=== PATIENT | female | born 1990 | race African-American/Black ===

== ENCOUNTER 2019-11-25 13:07 | Inpatient (IN) | payer MEDICAID ==
[~2019-11-25] VITALS: Ht 152.4 cm; Wt 87.1 kg
[~2019-11-25 13:07] MED LIST: CEPH-264 PO; CYCL10TA2 PO; IBUP-1007 PO
[2019-11-25] MEDS ORDERED: fentaNYL PF VIAL 100 MCG/2 ML VIAL ONE (13:44)
[2019-11-25] MEDS ORDERED: PANTOPRAZOLE IV PUSH 40 MG VIAL. IVP ONE ×2 (13:45→13:48)
[2019-11-25] MEDS ORDERED: fentaNYL PF VIAL 100 MCG/2 ML VIAL IV ONE (13:45)
[2019-11-25 13:58] LABS: BASO % 1 % (0-3); EOS # 0.1 x10^3/uL (0.0-0.7); EOS % 2 % (0-3); HEMOGLOBIN 12.3 g/dL (12.0-15.5); LYMPH # 1.8 x10^3/uL (1.0-4.8); LYMPH % 27 % (24-48); MEAN CORPUSCULAR HEMOGLOBIN 27 pg (25-35); MEAN CORPUSCULAR HGB CONC 32 g/dL (31-37); MEAN CORPUSCULAR VOLUME 83 fL (79-100); MONO # 0.6 x10^3/uL (0.0-1.1); MONO % 9 % (0-9); NEUT # 4.1 x10^3/uL (1.8-7.7); NEUT % 62 % (31-73); PLATELET COUNT 294 x10^3/uL (140-400); RED BLOOD COUNT 4.56 x10^6/uL (3.50-5.40); RED CELL DISTRIBUTION WIDTH 12.9 % (11.5-14.5); WHITE BLOOD COUNT 6.6 x10^3/uL (4.0-11.0)
[2019-11-25 14:08] LABS: CALCIUM 9.3 mg/dL (8.5-10.1); CREATININE 0.6 mg/dL (0.6-1.0); GFR 141.1
[2019-11-25 14:14] LABS: ALBUMIN 3.4 g/dL (3.4-5.0); ALBUMIN/GLOBULIN RATIO 0.8 (1.0-1.7); TOTAL BILIRUBIN 0.4 mg/dL (0.2-1.0); TOTAL PROTEIN 7.6 g/dL (6.4-8.2)
[2019-11-25] MEDS ORDERED: IOHEXOL 300 MG/ML 100ML VIAL. IV ONE (14:15)
[2019-11-25] MEDS ORDERED: CONTRAST GIVEN. MC PRN (14:30)
--- NOTE | 2019-11-25 14:48 | RAD ---
EXAM: Abdomen and pelvis CT with intravenous contrast. HISTORY: Rectal bleeding. TECHNIQUE: Computed tomographic images of the abdomen and pelvis were obtained following the administration of intravenous contrast. Multiplanar reformatting was performed. *One or more of the following individualized dose reduction techniques were utilized for this examination: 1. Automated exposure control. 2. Adjustment of the mA and/or kV according to patient size. 3. Use of iterative reconstruction technique. COMPARISON: None. FINDINGS: Evaluation of the lower thorax demonstrates no infiltrate or pleural effusion. There is suggestion of distal esophageal mucosal thickening, not clearly within limits to suggest esophagitis. No suspicious hepatic lesion is seen. There is cholelithiasis. There is common bile duct dilatation. The pancreas, spleen, adrenal glands and kidneys are unremarkable. There is no appendicitis. No abnormally thickened or dilated loop of bowel is seen. The urinary bladder is unremarkable. The uterus is unremarkable. There are small ovarian follicles and there is a small amount of pelvic free fluid, within physiologic limits. The aorta is normal in caliber. There is no lymphadenopathy. There is no suspicious osseous lesion. IMPRESSION: 1. Cholelithiasis. 2. No convincing acute abdominal or pelvic finding. Electronically signed by: Juani Alicea MD (11/25/2019 2:45 PM) [id number]
--- NOTE | 2019-11-25 15:22 | PHYS DOC ---
Past Medical History Past Medical History: Anxiety, Depression, Other Additional Past Medical Histor: CEREBRAL PALSY Past Surgical History: Other Additional Past Surgical Histo: GROIN, ANKLES, LIMB STRAIGHTENING Alcohol Use: None Drug Use: None Adult General Chief Complaint Chief Complaint: ABDOMINAL PAIN HPI HPI Patient is a 29 year old female who presents with here from a usp after she had a diarrhea bowel movement today and they helped wipe her and saw blood on the toilet paper. Patient complains of right-sided stomach lower abdominal pain. This all started today. Patient has cerebral palsy. She is alert and oriented 3. She only had diarrhea 1. She denies any nausea or vomiting. Rates the pain a 10 out of 10. No tenderness abdomen with palpation. Review of Systems Review of Systems GI: abdominal pain, denies nausea, vomiting. + bloody stools or +diarrhea x 1 [] All other systems were reviewed and found to be within normal limits, except as documented in this note. Current Medications Current Medications Current Medications Medications (Trade) Dose Ordered Sig/Clive Start Time Stop Time Status Last Admin Dose Admin Fentanyl Citrate (Fentanyl 2ml Vial) 50 mcg PRN Q1HR PRN 11/25/19 19:30 11/26/19 19:29 Info (CONTRAST GIVEN -- Rx MONITORING) 1 each PRN DAILY PRN 11/25/19 14:30 11/27/19 14:29 Iohexol (Omnipaque 300 Mg/ml) 75 ml 1X ONCE 11/25/19 14:15 11/25/19 14:16 DC 11/25/19 14:37 75 ML Ondansetron HCl (Zofran) 4 mg PRN Q8HRS PRN 11/25/19 19:30 11/26/19 19:29 Pantoprazole Sodium (PROTONIX VIAL for IV PUSH) 40 mg STK-MED ONCE 11/25/19 13:48 11/25/19 13:49 DC Sodium Chloride 1,000 ml @ 100 mls/hr Q10H 11/25/19 19:16 11/26/19 19:15 Allergies Allergies Allergies Coded Allergies Type Severity Reaction Last Updated Verified No Known Drug Allergies 11/25/19 No Physical Exam Physical Exam Constitutional: Well developed, well nourished, no acute distress, non-toxic appearance. [] HENT: Normocephalic, atraumatic, bilateral external ears normal, oropharynx moist, no oral exudates, nose normal. [] Eyes: PERRLA, EOMI, conjunctiva normal, no discharge. [] Neck: Normal range of motion, no tenderness, supple, no stridor. [] Cardiovascular:Heart rate regular rhythm, no murmur [] Lungs & Thorax: Bilateral breath sounds clear to auscultation [] Abdomen: Bowel sounds normal, soft, no tenderness, no masses, no pulsatile masses. [] Skin: Warm, dry, no erythema, no rash. [] Back: No tenderness, no CVA tenderness. [] Extremities: No tenderness, no cyanosis, no clubbing, ROM intact, no edema. [] Neurologic: Alert and oriented X 3, normal motor function, normal sensory function, no focal deficits noted. [] Psychologic: Affect normal, judgement normal, mood normal. Normal Physical Exam[] Current Patient Data Vital Signs Vital Signs Date Time Temp Pulse Resp B/P (MAP) Pulse Ox O2 Delivery O2 Flow Rate FiO2 11/25/19 18:50 80 16 146/68 (94) 98 Room Air 11/25/19 13:09 98.7 98.7 Lab Values Laboratory Tests Test 11/25/19 13:35 11/25/19 15:15 11/25/19 16:33 White Blood Count 6.6 x10^3/uL (4.0-11.0) Red Blood Count 4.56 x10^6/uL (3.50-5.40) Hemoglobin 12.3 g/dL (12.0-15.5) Hematocrit 38.0 % (36.0-47.0) Mean Corpuscular Volume 83 fL (79-100) Mean Corpuscular Hemoglobin 27 pg (25-35) Mean Corpuscular Hemoglobin Concent 32 g/dL (31-37) Red Cell Distribution Width 12.9 % (11.5-14.5) Platelet Count 294 x10^3/uL (140-400) Neutrophils (%) (Auto) 62 % (31-73) Lymphocytes (%) (Auto) 27 % (24-48) Monocytes (%) (Auto) 9 % (0-9) Eosinophils (%) (Auto) 2 % (0-3) Basophils (%) (Auto) 1 % (0-3) Neutrophils # (Auto) 4.1 x10^3/uL (1.8-7.7) Lymphocytes # (Auto) 1.8 x10^3/uL (1.0-4.8) Monocytes # (Auto) 0.6 x10^3/uL (0.0-1.1) Eosinophils # (Auto) 0.1 x10^3/uL (0.0-0.7) Basophils # (Auto) 0.0 x10^3/uL (0.0-0.2) Sodium Level 138 mmol/L (136-145) Potassium Level 4.0 mmol/L (3.5-5.1) Chloride Level 105 mmol/L (98-107) Carbon Dioxide Level 22 mmol/L (21-32) Anion Gap 11 (6-14) Blood Urea Nitrogen 10 mg/dL (7-20) Creatinine 0.6 mg/dL (0.6-1.0) Estimated GFR (Cockcroft-Gault) 141.1 BUN/Creatinine Ratio 17 (6-20) Glucose Level 87 mg/dL (70-99) Calcium Level 9.3 mg/dL (8.5-10.1) Total Bilirubin 0.4 mg/dL (0.2-1.0) Aspartate Amino Transferase (AST) 16 U/L (15-37) Alanine Aminotransferase (ALT) 7 U/L (14-59) L Alkaline Phosphatase 69 U/L (46-116) Total Protein 7.6 g/dL (6.4-8.2) Albumin 3.4 g/dL (3.4-5.0) Albumin/Globulin Ratio 0.8 (1.0-1.7) L Lipase 197 U/L (73-393) Stool Occult Blood Negative (NEG) Urine Collection Type Unknown Urine Color Yellow Urine Clarity Clear Urine pH 7.0 Urine Specific [place] >=1.030 Urine Protein Negative mg/dL (NEG-TRACE) Urine Glucose (UA) Negative mg/dL (NEG) Urine Ketones (Stick) Negative mg/dL (NEG) Urine Blood Negative (NEG) Urine Nitrite Negative (NEG) Urine Bilirubin Negative (NEG) Urine Urobilinogen Dipstick 0.2 mg/dL (0.2 mg/dL) Urine Leukocyte Esterase Negative (NEG) Urine RBC Occ /HPF (0-2) Urine WBC Occ /HPF (0-4) Urine Squamous Epithelial Cells Many /LPF Urine Bacteria Moderate /HPF (0-FEW) Urine Opiates Screen Neg (NEG) Urine Methadone Screen Neg (NEG) Urine Barbiturates Neg (NEG) Urine Phencyclidine Screen Neg (NEG) Urine Amphetamine/Methamphetamine Neg (NEG) Urine Benzodiazepines Screen Neg (NEG) Urine Cocaine Screen Neg (NEG) Urine Cannabinoids Screen Neg (NEG) Urine Ethyl Alcohol Neg (NEG) Laboratory Tests 11/25/19 13:35 Laboratory Tests 11/25/19 13:35 EKG EKG [] Radiology/Procedures Radiology/Procedures [] Impressions: [facility] [address] [place] [address] IMAGING REPORT Signed PATIENT: SOULEYMANE LINK ACCOUNT: [id number] : 1990 LOCATION: ER AGE: 29 SEX: F EXAM STATUS: PRE ER ORD. PHYSICIAN: PAUL PINON APRN REASON: abd pain, rectal bleeding PROCEDURE: CT ABD PELV W/ IV CONTRST ONLY EXAM: Abdomen and pelvis CT with intravenous contrast. HISTORY: Rectal bleeding. TECHNIQUE: Computed tomographic images of the abdomen and pelvis were obtained following the administration of intravenous contrast. Multiplanar reformatting was performed. *One or more of the following individualized dose reduction techniques were utilized for this examination: 1. Automated exposure control. 2. Adjustment of the mA and/or kV according to patient size. 3. Use of iterative reconstruction technique. COMPARISON: None. FINDINGS: Evaluation of the lower thorax demonstrates no infiltrate or pleural effusion. There is suggestion of distal esophageal mucosal thickening, not clearly within limits to suggest esophagitis. No suspicious hepatic lesion is seen. There is cholelithiasis. There is common bile duct dilatation. The pancreas, spleen, adrenal glands and kidneys are unremarkable. There is no appendicitis. No abnormally thickened or dilated loop of bowel is seen. The urinary bladder is unremarkable. The uterus is unremarkable. There are small ovarian follicles and there is a small amount of pelvic free fluid, within physiologic limits. The aorta is normal in caliber. There is no lymphadenopathy. There is no suspicious osseous lesion. IMPRESSION: 1. Cholelithiasis. 2. No convincing acute abdominal or pelvic finding. Electronically signed by: Juani Glasgow MD (11/25/2019 2:45 PM) [id number] DICTATED and SIGNED BY: JUANI GLASGOW MD DATE: 11/25/19 1445 [facility] [address] [place] [address] IMAGING REPORT Signed PATIENT: SOULEYMANE LINK ACCOUNT: [id number] : 1990 LOCATION: ER AGE: 29 SEX: F EXAM STATUS: REG ER ORD. PHYSICIAN: PAUL PINON APRN REASON: RUQ PAIN, GALLSTONES ON CT PROCEDURE: ABDOMEN LTD ABDOMEN LTD INDICATION: Right upper quadrant pain, cholelithiasis on CT COMPARISON: CT 11/25/2019. TECHNIQUE: Limited transverse and longitudinal grayscale images of the right upper quadrant with color and pulsed doppler utilized as appropriate. FINDINGS: The liver demonstrates normal echogenicity without focal lesions. The liver measures 14.2 cm. The portal vein is patent with normal antegrade flow. Cholelithiasis and gallbladder sludge. No wall thickening or pericholecystic fluid. Negative sonographic Yañez's sign. No intrahepatic or extrahepatic biliary dilatation. The common bile duct measures 14 mm Main pancreatic duct at upper limits of normal measuring 3 mm. The right kidney has normal echogenicity and measures 9.5 cm. No hydronephrosis, shadowing stones or suspicious masses seen. No ascites or fluid collections. The aorta and IVC are normal diameter where visualized. IMPRESSION: 1. Cholelithiasis and gallbladder sludge. No evidence of acute cholecystitis. 2. Dilated common bile duct measures 14 mm. Electronically signed by: Edith Schwarz MD (11/25/2019 7:19 PM) [facility] DICTATED and SIGNED BY: EDITH SCHWARZ MD DATE: 11/25/191918 Course & Med Decision Making Course & Med Decision Making Alert and oriented. Takes in full clear sentences. Answers all questions appropriately. Abdomen is soft and nontender. Lungs are clear to auscultation in all lobes. Vital signs within normal limits. No extremity edema. Skin pink warm and dry. Mucous membranes are moist. Afebrile. CT shows Cholithiasis. Blood work unremarkable. US shows: IMPRESSION: 1. Cholelithiasis and gallbladder sludge. No evidence of acute cholecystitis. 2. Dilated common bile duct measures 14 mm. Rectal Exam: Normal tone, No mass, Positive control Stool: Brown Guaiac: Negative Patient continues to rate her pain a 10/10. Her pain has not been controlled for long after Fentanyl has been given. I have spoken to Dr Carmona and patient is admitted. Dragon Disclaimer Dragon Disclaimer This electronic medical record was generated, in whole or in part, using a voice recognition dictation system. Departure Departure Impression: Primary Impression: Cholelithiases Disposition: ADMITTED INPATIENT Condition: STABLE Referrals: SAIRA REY MD (PCP) Problem Qualifiers Primary Impression: Cholelithiases Cholelithiasis location: gallbladder Cholecystitis presence: without cholecystitis Biliary obstruction: without biliary obstruction Qualified Codes: K80.20 - Calculus of gallbladder without cholecystitis without obstruction PAUL PINON APRN Nov 25, 2019 15:21
[2019-11-25] MEDS ORDERED: fentaNYL PF VIAL 100 MCG/2 ML VIAL IVP ONE ×2 (15:30→19:15)
[2019-11-25 15:31] LABS: FECAL OB PT NEGATIVE (NEG)
[2019-11-25] MEDS ORDERED: ONDANSETRON PF 4 MG/2 ML VIAL. ONE (15:49)
[2019-11-25 16:42] LABS: BILIRUBIN,URINE NEGATIVE (NEG); CLARITY,URINE CLEAR; COLOR,URINE YELLOW; NITRITE,URINE NEGATIVE (NEG); PROTEIN,URINE NEGATIVE (NEG-TRACE); UROBILINOGEN,URINE 0.2 mg/dL (0.2 mg/dL)
[2019-11-25 16:50] LABS: AMPHETAMINE/METHAMPHETAMINE NEG (NEG); BARBITURATES NEG (NEG); BENZODIAZEPINES NEG (NEG); CANNABINOIDS NEG (NEG); COCAINE NEG (NEG); METHADONE NEG (NEG); OPIATES NEG (NEG); PHENCYCLIDINE NEG (NEG)
[2019-11-25 16:51] LABS: BACTERIA,URINE MODERATE /HPF (0-FEW); RBC,URINE OCC /HPF (0-2); SQUAMOUS EPITHELIAL CELL,UR MANY /LPF; WBC,URINE OCC /HPF (0-4)
--- NOTE | 2019-11-25 19:22 | RAD ---
ABDOMEN LTD INDICATION: Right upper quadrant pain, cholelithiasis on CT COMPARISON: CT 11/25/2019. TECHNIQUE: Limited transverse and longitudinal grayscale images of the right upper quadrant with color and pulsed doppler utilized as appropriate. FINDINGS: The liver demonstrates normal echogenicity without focal lesions. The liver measures 14.2 cm. The portal vein is patent with normal antegrade flow. Cholelithiasis and gallbladder sludge. No wall thickening or pericholecystic fluid. Negative sonographic Yañez's sign. No intrahepatic or extrahepatic biliary dilatation. The common bile duct measures 14 mm Main pancreatic duct at upper limits of normal measuring 3 mm. The right kidney has normal echogenicity and measures 9.5 cm. No hydronephrosis, shadowing stones or suspicious masses seen. No ascites or fluid collections. The aorta and IVC are normal diameter where visualized. IMPRESSION: 1. Cholelithiasis and gallbladder sludge. No evidence of acute cholecystitis. 2. Dilated common bile duct measures 14 mm. Electronically signed by: Enrique Tomlinson MD (11/25/2019 7:19 PM) [facility]
[2019-11-25] MEDS ORDERED: fentaNYL PF VIAL 100 MCG/2 ML VIAL IV PRN (19:30)
[2019-11-25] MEDS ORDERED: ONDANSETRON PF 4 MG/2 ML VIAL. IV PRN (19:30)
[2019-11-25 20:45] VITALS: BP 124/71
[2019-11-25 23:00] VITALS: BP 114/68
[2019-11-26] MEDS: IV NORMAL SALINE 1000ML BAG 1,000 ML IV SCH ×3 (00:50→15:16)
[2019-11-26] MEDS ORDERED: PARO12.517 PO (01:44)
[2019-11-26] MEDS ORDERED: CARB15DR3 EACHEYE (01:44)
--- NOTE | 2019-11-26 02:49 | NUR ---
The patient, SOULEYMANE LINK, 29 y/o, F admitted by CARRIE ASENCIO MD, was given written information regarding hospital policies, unit procedures and contact persons. Valuables were checked and left with patient .
[2019-11-26 03:00] VITALS: BP 100/49
[2019-11-26 07:59] VITALS: BP 116/62
--- NOTE | 2019-11-26 11:05 | PDOC1 ---
History and Physical Date of Admission Date of Admission DATE: 11/26/19 TIME: 11:03 Identification/Chief Complaint Chief Complaint SEEN IN ER , presented from a halfway after she had a diarrhea bowel movement 11/25 and they helped wipe her and saw blood on the toilet paper. Patient complains of right-sided stomach lower abdominal pain. This all started 11/25 Patient has cerebral palsy. She is alert and oriented 3. She only had diarrhea 1. She denies any nausea or vomiting. Rated the pain a 10 out of 10 in ER, NAD NOW Past Medical History Past Medical History Past Medical History Past Medical History Past Medical History: Anxiety, Depression, Other Additional Past Medical Histor: CEREBRAL PALSY Past Surgical History: Other Additional Past Surgical Histo: GROIN, ANKLES, LIMB STRAIGHTENING Alcohol Use: None Drug Use: None FHX OBESITY Family History Family History: High Cholestrol Social History Smoke: No ALCOHOL: none Drugs: None Current Problem List Problem List Problems Medical Problems: (1) Abdominal pain Status: Acute (2) Cholelithiases Status: Acute Current Medications Current Medications Current Medications Fentanyl Citrate (Fentanyl 2ml Vial) 100 mcg STK-MED ONCE .ROUTE ; Start 11/25/19 at 13:44; Stop 11/25/19 at 13:44; Status DC Fentanyl Citrate (Fentanyl 2ml Vial) 50 mcg 1X ONCE IV Last administered on 11/25/19at 13:47; Start 11/25/19 at 13:45; Stop 11/25/19 at 13:48; Status DC Pantoprazole Sodium (PROTONIX VIAL for IV PUSH) 40 mg 1X ONCE IVP Last administered on 11/25/19at 13:50; Start 11/25/19 at 13:45; Stop 11/25/19 at 13:48; Status DC Pantoprazole Sodium (PROTONIX VIAL for IV PUSH) 40 mg STK-MED ONCE IVP ; Start 11/25/19 at 13:48; Stop 11/25/19 at 13:49; Status DC Iohexol (Omnipaque 300 Mg/ml) 75 ml 1X ONCE IV Last administered on 11/25/19at 14:37; Start 11/25/19 at 14:15; Stop 11/25/19 at 14:16; Status DC Info (CONTRAST GIVEN -- Rx MONITORING) 1 each PRN DAILY PRN MC SEE COMMENTS; Start 11/25/19 at 14:30; Stop 11/27/19 at 14:29 Fentanyl Citrate (Fentanyl 2ml Vial) 50 mcg 1X ONCE IVP Last administered on 11/25/19at 15:31; Start 11/25/19 at 15:30; Stop 11/25/19 at 15:31; Status DC Ondansetron HCl (Zofran) 4 mg STK-MED ONCE .ROUTE ; Start 11/25/19 at 15:49; Stop 11/25/19 at 15:49; Status DC Fentanyl Citrate (Fentanyl 2ml Vial) 50 mcg 1X ONCE IVP Last administered on 11/25/19at 19:59; Start 11/25/19 at 19:15; Stop 11/25/19 at 19:16; Status DC Ondansetron HCl (Zofran) 4 mg PRN Q8HRS PRN IV NAUSEA/VOMITING; Start 11/25/19 at 19:30; Stop 11/26/19 at 19:29 Fentanyl Citrate (Fentanyl 2ml Vial) 50 mcg PRN Q1HR PRN IV PAIN Last administered on 11/26/19at 03:37; Start 11/25/19 at 19:30; Stop 11/26/19 at 19:29 Sodium Chloride 1,000 ml @ 100 mls/hr Q10H IV Last administered on 11/26/19at 10:01; Start 11/25/19 at 19:16; Stop 11/26/19 at 19:15 Active Scripts Active Ibuprofen 600 Mg Tablet 600 Mg PO Q6-8HRS PRN Reported Refresh Optive Eye Drops (Carboxymethylcellulos/Glycerin) 15 Ml Drops 1 Drop EACHEYE TID Paroxetine Cr (Paroxetine HCl) 12.5 Mg Tab.er.24h 5 Mg PO DAILY Allergies Allergies: Coded Allergies: No Known Drug Allergies (Unverified , 11/25/19) ROS Review of System Review of Systems Review of Systems GI: abdominal pain, denies nausea, vomiting. + bloody stools or +diarrhea x 1 [] 14 PT systems were reviewed and found to be within normal limits, except as documented General: No: Chills, Night Sweats, Fatigue, Malaise, Appetite, Other PSYCHOLOGICAL ROS: YES: Anxiety Eyes: No Blurry vision, No Decreased vision, No Double vision, No Dry eyes, No Excessive tearing, No Eye Pain, No Itchy Eyes, No Loss of vision, No Photophobia, No Scotomata, No Uses contacts, No Uses glasses, No Other HEENT: No: Heacaches, Visual Changes, Hearing change, Nasal congestion, Nasal discharge, Oral lesions, Sinus pain, Sore Throat, Epistaxis, Sneezing, Snoring, Tinnitus, Vertigo, Vocal changes, Other ALLERGY AND IMMUNOLOGY: No: Hives, Insect Bite Sensitivity, Itchy/Watery Eyes, Nasal Congestion, Post Nasal Drip, Seasonal Allergies, Other Hematological and Lymphatic: No: Bleeding Problems, Blood Clots, Blood Transfusions, Brusing, Night Sweats, Pallor, Swollen Lymph Nodes, Other Cardiovascular: No Chest Pain, No Palpitations, No Orthopnea, No Paroxysmal Noc. Dyspnea, No Edema, No Lt Headedness, No Other Physical Exam Physical Exam Physical Exam Physical Exam Constitutional: Well developed, well nourished, no acute distress, non-toxic appearance. [] HENT: Normocephalic, atraumatic, bilateral external ears normal, oropharynx moist, no oral exudates, nose normal. [] Eyes: PERRLA, EOMI, conjunctiva normal, no discharge. [] Neck: Normal range of motion, no tenderness, supple, no stridor. [] Cardiovascular:Heart rate regular rhythm, no murmur [] Lungs & Thorax: Bilateral breath sounds clear to auscultation [] Abdomen: Bowel sounds normal, soft, no tenderness, no masses, no pulsatile masses. [] Skin: Warm, dry, no erythema, no rash. [] Back: No tenderness, no CVA tenderness. [] Extremities: No tenderness, no cyanosis, no clubbing, ROM intact, no edema. [] Neurologic: Alert and oriented X 3, normal motor function, normal sensory function, no focal deficits noted. [] Psychologic: Affect normal, judgment normal, mood normal. General: Oriented X3, Cooperative Heart: RRR Breasts: Not examined Abdomen: Normal bowel sounds, Soft Rectal Exam: not examined PELVIC: Examination not indicated Extremities: No clubbing, No cyanosis Psych/Mental Status: Mood NL Vitals Vitals Vital Signs Date Time Temp Pulse Resp B/P (MAP) Pulse Ox O2 Delivery O2 Flow Rate FiO2 11/26/19 07:59 98.4 93 20 116/62 (80) Room Air 98.4 11/26/19 04:10 99 Labs Labs Laboratory Tests Test 11/25/19 13:35 11/25/19 15:15 11/25/19 16:33 White Blood Count 6.6 x10^3/uL (4.0-11.0) Red Blood Count 4.56 x10^6/uL (3.50-5.40) Hemoglobin 12.3 g/dL (12.0-15.5) Hematocrit 38.0 % (36.0-47.0) Mean Corpuscular Volume 83 fL (79-100) Mean Corpuscular Hemoglobin 27 pg (25-35) Mean Corpuscular Hemoglobin Concent 32 g/dL (31-37) Red Cell Distribution Width 12.9 % (11.5-14.5) Platelet Count 294 x10^3/uL (140-400) Neutrophils (%) (Auto) 62 % (31-73) Lymphocytes (%) (Auto) 27 % (24-48) Monocytes (%) (Auto) 9 % (0-9) Eosinophils (%) (Auto) 2 % (0-3) Basophils (%) (Auto) 1 % (0-3) Neutrophils # (Auto) 4.1 x10^3/uL (1.8-7.7) Lymphocytes # (Auto) 1.8 x10^3/uL (1.0-4.8) Monocytes # (Auto) 0.6 x10^3/uL (0.0-1.1) Eosinophils # (Auto) 0.1 x10^3/uL (0.0-0.7) Basophils # (Auto) 0.0 x10^3/uL (0.0-0.2) Sodium Level 138 mmol/L (136-145) Potassium Level 4.0 mmol/L (3.5-5.1) Chloride Level 105 mmol/L (98-107) Carbon Dioxide Level 22 mmol/L (21-32) Anion Gap 11 (6-14) Blood Urea Nitrogen 10 mg/dL (7-20) Creatinine 0.6 mg/dL (0.6-1.0) Estimated GFR (Cockcroft-Gault) 141.1 BUN/Creatinine Ratio 17 (6-20) Glucose Level 87 mg/dL (70-99) Calcium Level 9.3 mg/dL (8.5-10.1) Total Bilirubin 0.4 mg/dL (0.2-1.0) Aspartate Amino Transf (AST/SGOT) 16 U/L (15-37) Alanine Aminotransferase (ALT/SGPT) 7 U/L (14-59) Alkaline Phosphatase 69 U/L (46-116) Total Protein 7.6 g/dL (6.4-8.2) Albumin 3.4 g/dL (3.4-5.0) Albumin/Globulin Ratio 0.8 (1.0-1.7) Lipase 197 U/L (73-393) Stool Occult Blood Negative (NEG) Urine Collection Type Unknown Urine Color Yellow Urine Clarity Clear Urine pH 7.0 Urine Specific [place] >=1.030 Urine Protein Negative mg/dL (NEG-TRACE) Urine Glucose (UA) Negative mg/dL (NEG) Urine Ketones (Stick) Negative mg/dL (NEG) Urine Blood Negative (NEG) Urine Nitrite Negative (NEG) Urine Bilirubin Negative (NEG) Urine Urobilinogen Dipstick 0.2 mg/dL (0.2 mg/dL) Urine Leukocyte Esterase Negative (NEG) Urine RBC Occ /HPF (0-2) Urine WBC Occ /HPF (0-4) Urine Squamous Epithelial Cells Many /LPF Urine Bacteria Moderate /HPF (0-FEW) Urine Opiates Screen Neg (NEG) Urine Methadone Screen Neg (NEG) Urine Barbiturates Neg (NEG) Urine Phencyclidine Screen Neg (NEG) Urine Amphetamine/Methamphetamine Neg (NEG) Urine Benzodiazepines Screen Neg (NEG) Urine Cocaine Screen Neg (NEG) Urine Cannabinoids Screen Neg (NEG) Urine Ethyl Alcohol Neg (NEG) Laboratory Tests Test 11/25/19 13:35 11/25/19 15:15 11/25/19 16:33 White Blood Count 6.6 x10^3/uL (4.0-11.0) Red Blood Count 4.56 x10^6/uL (3.50-5.40) Hemoglobin 12.3 g/dL (12.0-15.5) Hematocrit 38.0 % (36.0-47.0) Mean Corpuscular Volume 83 fL (79-100) Mean Corpuscular Hemoglobin 27 pg (25-35) Mean Corpuscular Hemoglobin Concent 32 g/dL (31-37) Red Cell Distribution Width 12.9 % (11.5-14.5) Platelet Count 294 x10^3/uL (140-400) Neutrophils (%) (Auto) 62 % (31-73) Lymphocytes (%) (Auto) 27 % (24-48) Monocytes (%) (Auto) 9 % (0-9) Eosinophils (%) (Auto) 2 % (0-3) Basophils (%) (Auto) 1 % (0-3) Neutrophils # (Auto) 4.1 x10^3/uL (1.8-7.7) Lymphocytes # (Auto) 1.8 x10^3/uL (1.0-4.8) Monocytes # (Auto) 0.6 x10^3/uL (0.0-1.1) Eosinophils # (Auto) 0.1 x10^3/uL (0.0-0.7) Basophils # (Auto) 0.0 x10^3/uL (0.0-0.2) Sodium Level 138 mmol/L (136-145) Potassium Level 4.0 mmol/L (3.5-5.1) Chloride Level 105 mmol/L (98-107) Carbon Dioxide Level 22 mmol/L (21-32) Anion Gap 11 (6-14) Blood Urea Nitrogen 10 mg/dL (7-20) Creatinine 0.6 mg/dL (0.6-1.0) Estimated GFR (Cockcroft-Gault) 141.1 BUN/Creatinine Ratio 17 (6-20) Glucose Level 87 mg/dL (70-99) Calcium Level 9.3 mg/dL (8.5-10.1) Total Bilirubin 0.4 mg/dL (0.2-1.0) Aspartate Amino Transf (AST/SGOT) 16 U/L (15-37) Alanine Aminotransferase (ALT/SGPT) 7 U/L (14-59) Alkaline Phosphatase 69 U/L (46-116) Total Protein 7.6 g/dL (6.4-8.2) Albumin 3.4 g/dL (3.4-5.0) Albumin/Globulin Ratio 0.8 (1.0-1.7) Lipase 197 U/L (73-393) Stool Occult Blood Negative (NEG) Urine Collection Type Unknown Urine Color Yellow Urine Clarity Clear Urine pH 7.0 Urine Specific [place] >=1.030 Urine Protein Negative mg/dL (NEG-TRACE) Urine Glucose (UA) Negative mg/dL (NEG) Urine Ketones (Stick) Negative mg/dL (NEG) Urine Blood Negative (NEG) Urine Nitrite Negative (NEG) Urine Bilirubin Negative (NEG) Urine Urobilinogen Dipstick 0.2 mg/dL (0.2 mg/dL) Urine Leukocyte Esterase Negative (NEG) Urine RBC Occ /HPF (0-2) Urine WBC Occ /HPF (0-4) Urine Squamous Epithelial Cells Many /LPF Urine Bacteria Moderate /HPF (0-FEW) Urine Opiates Screen Neg (NEG) Urine Methadone Screen Neg (NEG) Urine Barbiturates Neg (NEG) Urine Phencyclidine Screen Neg (NEG) Urine Amphetamine/Methamphetamine Neg (NEG) Urine Benzodiazepines Screen Neg (NEG) Urine Cocaine Screen Neg (NEG) Urine Cannabinoids Screen Neg (NEG) Urine Ethyl Alcohol Neg (NEG) Images Images EXAM: Abdomen and pelvis CT with intravenous contrast. HISTORY: Rectal bleeding. TECHNIQUE: Computed tomographic images of the abdomen and pelvis were obtained following the administration of intravenous contrast. Multiplanar reformatting was performed. *One or more of the following individualized dose reduction techniques were utilized for this examination: 1. Automated exposure control. 2. Adjustment of the mA and/or kV according to patient size. 3. Use of iterative reconstruction technique. COMPARISON: None. FINDINGS: Evaluation of the lower thorax demonstrates no infiltrate or pleural effusion. There is suggestion of distal esophageal mucosal thickening, not clearly within limits to suggest esophagitis. No suspicious hepatic lesion is seen. There is cholelithiasis. There is common bile duct dilatation. The pancreas, spleen, adrenal glands and kidneys are unremarkable. There is no appendicitis. No abnormally thickened or dilated loop of bowel is seen. The urinary bladder is unremarkable. The uterus is unremarkable. There are small ovarian follicles and there is a small amount of pelvic free fluid, within physiologic limits. The aorta is normal in caliber. There is no lymphadenopathy. There is no suspicious osseous lesion. IMPRESSION: 1. Cholelithiasis. 2. No convincing acute abdominal or pelvic finding. Electronically signed by: Juani Glasgow MD (11/25/2019 2:45 PM) [facility] [id number] DICTATED and SIGNED BY: JUANI GLASGOW MD [facility] INDICATION: Right upper quadrant pain, cholelithiasis on CT COMPARISON: CT 11/25/2019. TECHNIQUE: Limited transverse and longitudinal grayscale images of the right upper quadrant with color and pulsed doppler utilized as appropriate. FINDINGS: The liver demonstrates normal echogenicity without focal lesions. The liver measures 14.2 cm. The portal vein is patent with normal antegrade flow. Cholelithiasis and gallbladder sludge. No wall thickening or pericholecystic fluid. Negative sonographic Yañez's sign. No intrahepatic or extrahepatic biliary dilatation. The common bile duct measures 14 mm Main pancreatic duct at upper limits of normal measuring 3 mm. The right kidney has normal echogenicity and measures 9.5 cm. No hydronephrosis, shadowing stones or suspicious masses seen. No ascites or fluid collections. The aorta and IVC are normal diameter where visualized. IMPRESSION: 1. Cholelithiasis and gallbladder sludge. No evidence of acute cholecystitis. 2. Dilated common bile duct measures 14 mm. Electronically signed by: Edith Schwarz MD (11/25/2019 7:19 PM) [facility] DICTATED and SIGNED BY: EDITH SCHWARZ MD DATE: 11/25/191918 VTE Prophylaxis Ordered VTE Prophylaxis Devices: No VTE Pharmacological Prophylaxi: Contraindicated Assessment/Plan Assessment/Plan IMPRESSION: 1. Cholelithiasis and gallbladder sludge. No evidence of acute cholecystitis. BY US 2. Dilated common bile duct measures 14 mm. 3. No convincing acute abdominal or pelvic finding. BY ct 11/25 PLAN trial diet GEN SURG CONSULTED DVT PROPHYLAXIS CARRIE ASENCIO MD Nov 26, 2019 11:05
[2019-11-26 11:52] VITALS: BP 131/63
--- NOTE | 2019-11-26 12:36 | PDOC2 ---
CONSULT Date of Consult Date of Consult DATE: 11/26/19 TIME: 12:28 Reason for Consult Reason for Consult: cholelithiasis Referring Physician Referring Physician: ER Identification/Chief Complaint Chief Complaint diarrhea, blood in stool Source Source: Caregiver, Chart review, Patient History of Present Illness Reason for Visit: Pt with cerebral palsy, reports showering yesterday am--had diarrhea, blood on toliet paper and epigastric pain. No pain currently, no further diarrhea. No similar symptoms in past No nausea or emesis Past Medical History CENTRAL NERVOUS SYSTEM: Other (cerebral palsy) Psych: Anxiety Past Surgical History Past Surgical History: No pertinent history Family History Family History: Family History Unknown Social History No ALCOHOL: none Drugs: None Lives: Senior Living Current Problem List Problem List Problems Medical Problems: (1) Abdominal pain Status: Acute (2) Cholelithiases Status: Acute Current Medications Current Medications Current Medications Fentanyl Citrate (Fentanyl 2ml Vial) 100 mcg STK-MED ONCE .ROUTE ; Start 11/25/19 at 13:44; Stop 11/25/19 at 13:44; Status DC Fentanyl Citrate (Fentanyl 2ml Vial) 50 mcg 1X ONCE IV Last administered on 11/25/19at 13:47; Start 11/25/19 at 13:45; Stop 11/25/19 at 13:48; Status DC Pantoprazole Sodium (PROTONIX VIAL for IV PUSH) 40 mg 1X ONCE IVP Last administered on 11/25/19at 13:50; Start 11/25/19 at 13:45; Stop 11/25/19 at 13:48; Status DC Pantoprazole Sodium (PROTONIX VIAL for IV PUSH) 40 mg STK-MED ONCE IVP ; Start 11/25/19 at 13:48; Stop 11/25/19 at 13:49; Status DC Iohexol (Omnipaque 300 Mg/ml) 75 ml 1X ONCE IV Last administered on 11/25/19at 14:37; Start 11/25/19 at 14:15; Stop 11/25/19 at 14:16; Status DC Info (CONTRAST GIVEN -- Rx MONITORING) 1 each PRN DAILY PRN MC SEE COMMENTS; Start 11/25/19 at 14:30; Stop 11/27/19 at 14:29 Fentanyl Citrate (Fentanyl 2ml Vial) 50 mcg 1X ONCE IVP Last administered on 11/25/19at 15:31; Start 11/25/19 at 15:30; Stop 11/25/19 at 15:31; Status DC Ondansetron HCl (Zofran) 4 mg STK-MED ONCE .ROUTE ; Start 11/25/19 at 15:49; Stop 11/25/19 at 15:49; Status DC Fentanyl Citrate (Fentanyl 2ml Vial) 50 mcg 1X ONCE IVP Last administered on 11/25/19at 19:59; Start 11/25/19 at 19:15; Stop 11/25/19 at 19:16; Status DC Ondansetron HCl (Zofran) 4 mg PRN Q8HRS PRN IV NAUSEA/VOMITING; Start 11/25/19 at 19:30; Stop 11/26/19 at 19:29 Fentanyl Citrate (Fentanyl 2ml Vial) 50 mcg PRN Q1HR PRN IV PAIN Last administered on 11/26/19at 03:37; Start 11/25/19 at 19:30; Stop 11/26/19 at 19:29 Sodium Chloride 1,000 ml @ 100 mls/hr Q10H IV Last administered on 11/26/19at 10:01; Start 11/25/19 at 19:16; Stop 11/26/19 at 19:15 Active Scripts Active Ibuprofen 600 Mg Tablet 600 Mg PO Q6-8HRS PRN Reported Refresh Optive Eye Drops (Carboxymethylcellulos/Glycerin) 15 Ml Drops 1 Drop EACHEYE TID Paroxetine Cr (Paroxetine HCl) 12.5 Mg Tab.er.24h 5 Mg PO DAILY Allergies Allergies: Coded Allergies: No Known Drug Allergies (Unverified , 11/25/19) ROS General: No: Chills, Other (fevers ) PSYCHOLOGICAL ROS: No: Anxiety, Depression Eyes: No Blurry vision, No Double vision HEENT: No: Heacaches, Sore Throat Hematological and Lymphatic: No: Bleeding Problems, Blood Clots Respiratory: No: Cough, Shortness of breath Cardiovascular: No Chest Pain, No Palpitations Gastrointestinal: Yes Other (see hpi) Genitourinary: No Dysuria, No Hematuria Musculoskeletal: No Joint Pain, No Muscle Pain Neurological: No Impaired Coord/balance, No Numbness/Tingling Skin: No Pruritus, No Rash Physical Exam General: Alert, Oriented X3, Cooperative HEENT: PERRLA, Mucous membr. moist/pink Lungs: Clear to auscultation, Normal air movement Heart: Regular rate, Normal S1, Normal S2 Abdomen: Soft, No tenderness, No hepatosplenomegaly Extremities: No clubbing, No cyanosis Skin: No rashes, No breakdown Neuro: Normal speech, Sensation intact Psych/Mental Status: Mental status NL, Mood NL Vitals VITALS Vital Signs Date Time Temp Pulse Resp B/P (MAP) Pulse Ox O2 Delivery O2 Flow Rate FiO2 11/26/19 11:52 98.0 96 18 131/63 (85) 92 Room Air 98.0 Labs Labs Laboratory Tests Test 11/25/19 13:35 11/25/19 15:15 11/25/19 16:33 White Blood Count 6.6 x10^3/uL (4.0-11.0) Red Blood Count 4.56 x10^6/uL (3.50-5.40) Hemoglobin 12.3 g/dL (12.0-15.5) Hematocrit 38.0 % (36.0-47.0) Mean Corpuscular Volume 83 fL (79-100) Mean Corpuscular Hemoglobin 27 pg (25-35) Mean Corpuscular Hemoglobin Concent 32 g/dL (31-37) Red Cell Distribution Width 12.9 % (11.5-14.5) Platelet Count 294 x10^3/uL (140-400) Neutrophils (%) (Auto) 62 % (31-73) Lymphocytes (%) (Auto) 27 % (24-48) Monocytes (%) (Auto) 9 % (0-9) Eosinophils (%) (Auto) 2 % (0-3) Basophils (%) (Auto) 1 % (0-3) Neutrophils # (Auto) 4.1 x10^3/uL (1.8-7.7) Lymphocytes # (Auto) 1.8 x10^3/uL (1.0-4.8) Monocytes # (Auto) 0.6 x10^3/uL (0.0-1.1) Eosinophils # (Auto) 0.1 x10^3/uL (0.0-0.7) Basophils # (Auto) 0.0 x10^3/uL (0.0-0.2) Sodium Level 138 mmol/L (136-145) Potassium Level 4.0 mmol/L (3.5-5.1) Chloride Level 105 mmol/L (98-107) Carbon Dioxide Level 22 mmol/L (21-32) Anion Gap 11 (6-14) Blood Urea Nitrogen 10 mg/dL (7-20) Creatinine 0.6 mg/dL (0.6-1.0) Estimated GFR (Cockcroft-Gault) 141.1 BUN/Creatinine Ratio 17 (6-20) Glucose Level 87 mg/dL (70-99) Calcium Level 9.3 mg/dL (8.5-10.1) Total Bilirubin 0.4 mg/dL (0.2-1.0) Aspartate Amino Transf (AST/SGOT) 16 U/L (15-37) Alanine Aminotransferase (ALT/SGPT) 7 U/L (14-59) Alkaline Phosphatase 69 U/L (46-116) Total Protein 7.6 g/dL (6.4-8.2) Albumin 3.4 g/dL (3.4-5.0) Albumin/Globulin Ratio 0.8 (1.0-1.7) Lipase 197 U/L (73-393) Stool Occult Blood Negative (NEG) Urine Collection Type Unknown Urine Color Yellow Urine Clarity Clear Urine pH 7.0 Urine Specific [place] >=1.030 Urine Protein Negative mg/dL (NEG-TRACE) Urine Glucose (UA) Negative mg/dL (NEG) Urine Ketones (Stick) Negative mg/dL (NEG) Urine Blood Negative (NEG) Urine Nitrite Negative (NEG) Urine Bilirubin Negative (NEG) Urine Urobilinogen Dipstick 0.2 mg/dL (0.2 mg/dL) Urine Leukocyte Esterase Negative (NEG) Urine RBC Occ /HPF (0-2) Urine WBC Occ /HPF (0-4) Urine Squamous Epithelial Cells Many /LPF Urine Bacteria Moderate /HPF (0-FEW) Urine Opiates Screen Neg (NEG) Urine Methadone Screen Neg (NEG) Urine Barbiturates Neg (NEG) Urine Phencyclidine Screen Neg (NEG) Urine Amphetamine/Methamphetamine Neg (NEG) Urine Benzodiazepines Screen Neg (NEG) Urine Cocaine Screen Neg (NEG) Urine Cannabinoids Screen Neg (NEG) Urine Ethyl Alcohol Neg (NEG) Laboratory Tests Test 11/25/19 13:35 11/25/19 15:15 11/25/19 16:33 White Blood Count 6.6 x10^3/uL (4.0-11.0) Red Blood Count 4.56 x10^6/uL (3.50-5.40) Hemoglobin 12.3 g/dL (12.0-15.5) Hematocrit 38.0 % (36.0-47.0) Mean Corpuscular Volume 83 fL (79-100) Mean Corpuscular Hemoglobin 27 pg (25-35) Mean Corpuscular Hemoglobin Concent 32 g/dL (31-37) Red Cell Distribution Width 12.9 % (11.5-14.5) Platelet Count 294 x10^3/uL (140-400) Neutrophils (%) (Auto) 62 % (31-73) Lymphocytes (%) (Auto) 27 % (24-48) Monocytes (%) (Auto) 9 % (0-9) Eosinophils (%) (Auto) 2 % (0-3) Basophils (%) (Auto) 1 % (0-3) Neutrophils # (Auto) 4.1 x10^3/uL (1.8-7.7) Lymphocytes # (Auto) 1.8 x10^3/uL (1.0-4.8) Monocytes # (Auto) 0.6 x10^3/uL (0.0-1.1) Eosinophils # (Auto) 0.1 x10^3/uL (0.0-0.7) Basophils # (Auto) 0.0 x10^3/uL (0.0-0.2) Sodium Level 138 mmol/L (136-145) Potassium Level 4.0 mmol/L (3.5-5.1) Chloride Level 105 mmol/L (98-107) Carbon Dioxide Level 22 mmol/L (21-32) Anion Gap 11 (6-14) Blood Urea Nitrogen 10 mg/dL (7-20) Creatinine 0.6 mg/dL (0.6-1.0) Estimated GFR (Cockcroft-Gault) 141.1 BUN/Creatinine Ratio 17 (6-20) Glucose Level 87 mg/dL (70-99) Calcium Level 9.3 mg/dL (8.5-10.1) Total Bilirubin 0.4 mg/dL (0.2-1.0) Aspartate Amino Transf (AST/SGOT) 16 U/L (15-37) Alanine Aminotransferase (ALT/SGPT) 7 U/L (14-59) Alkaline Phosphatase 69 U/L (46-116) Total Protein 7.6 g/dL (6.4-8.2) Albumin 3.4 g/dL (3.4-5.0) Albumin/Globulin Ratio 0.8 (1.0-1.7) Lipase 197 U/L (73-393) Stool Occult Blood Negative (NEG) Urine Collection Type Unknown Urine Color Yellow Urine Clarity Clear Urine pH 7.0 Urine Specific [place] >=1.030 Urine Protein Negative mg/dL (NEG-TRACE) Urine Glucose (UA) Negative mg/dL (NEG) Urine Ketones (Stick) Negative mg/dL (NEG) Urine Blood Negative (NEG) Urine Nitrite Negative (NEG) Urine Bilirubin Negative (NEG) Urine Urobilinogen Dipstick 0.2 mg/dL (0.2 mg/dL) Urine Leukocyte Esterase Negative (NEG) Urine RBC Occ /HPF (0-2) Urine WBC Occ /HPF (0-4) Urine Squamous Epithelial Cells Many /LPF Urine Bacteria Moderate /HPF (0-FEW) Urine Opiates Screen Neg (NEG) Urine Methadone Screen Neg (NEG) Urine Barbiturates Neg (NEG) Urine Phencyclidine Screen Neg (NEG) Urine Amphetamine/Methamphetamine Neg (NEG) Urine Benzodiazepines Screen Neg (NEG) Urine Cocaine Screen Neg (NEG) Urine Cannabinoids Screen Neg (NEG) Urine Ethyl Alcohol Neg (NEG) Assessment/Plan Assessment/Plan cholelithiasis, no signs of cholecystitis--currently nontender abdomen diarrhea yesterday, some blood on tissue paper--occult stool negative would monitor and treat conservatively unless symptoms return ok to trial diet from surgical poJIM Vera APRN Nov 26, 2019 12:36
[2019-11-26 15:59] VITALS: BP 115/62
[2019-11-26 19:00] VITALS: BP 120/69
[2019-11-26] MEDS: fentaNYL PF VIAL 100 MCG/2 ML VIAL IVP PRN ×3 (20:17→22:47)
[2019-11-26 23:00] VITALS: BP 106/53
[2019-11-27 03:00] VITALS: BP 98/59
[2019-11-27] MEDS: fentaNYL PF VIAL 100 MCG/2 ML VIAL IVP PRN (03:37)
[2019-11-27 07:00] VITALS: BP 114/54
--- NOTE | 2019-11-27 07:56 | PDOC ---
PROGRESS NOTES Chief Complaint Chief Complaint Cholelithiasis and gallbladder sludge. No evidence of acute cholecystitis. BY US Dilated common bile duct measures 14 mm History of Present Illness History of Present Illness Ms Milligan is a 29yo F w/ PMHx Anxiety, Depression, cerebral palsy who presented from a [place] [facility] after she had a diarrhea bowel movement 11/25 and they helped wipe her and saw blood on the toilet paper. Patient complains of right-sided stomach lower abdominal pain. This all started 11/25 Patient has cerebral palsy. She is alert and oriented 3. She only had diarrhea 1. She denies any nausea or vomiting. Rated the pain a 10 out of 10 in ER. She currently has no pain, asking for food. Her pain was always in her rectal area. Plan: HIDA scan w/o EF per GS Ok to eat and likely d/c if HIDA negative Vitals Vitals Vital Signs Date Time Temp Pulse Resp B/P (MAP) Pulse Ox O2 Delivery O2 Flow Rate FiO2 11/27/19 04:10 Room Air 11/27/19 03:00 98.2 85 18 98/59 (72) 100 98.2 Physical Exam General: Oriented X3, Cooperative Heart: Regular rate, Normal S1, Normal S2 Abdomen: Normal bowel sounds, Soft Extremities: No clubbing, No cyanosis Skin: No rashes, No breakdown Assessment and Plan Assessmemt and Plan Problems Medical Problems: (1) Abdominal pain Status: Acute (2) Cholelithiases Status: Acute Comment Review of Relevant I have reviewed the following items kelly (where applicable) has been applied. Labs Laboratory Tests Test 11/25/19 13:35 11/25/19 15:15 11/25/19 16:33 White Blood Count 6.6 x10^3/uL (4.0-11.0) Red Blood Count 4.56 x10^6/uL (3.50-5.40) Hemoglobin 12.3 g/dL (12.0-15.5) Hematocrit 38.0 % (36.0-47.0) Mean Corpuscular Volume 83 fL (79-100) Mean Corpuscular Hemoglobin 27 pg (25-35) Mean Corpuscular Hemoglobin Concent 32 g/dL (31-37) Red Cell Distribution Width 12.9 % (11.5-14.5) Platelet Count 294 x10^3/uL (140-400) Neutrophils (%) (Auto) 62 % (31-73) Lymphocytes (%) (Auto) 27 % (24-48) Monocytes (%) (Auto) 9 % (0-9) Eosinophils (%) (Auto) 2 % (0-3) Basophils (%) (Auto) 1 % (0-3) Neutrophils # (Auto) 4.1 x10^3/uL (1.8-7.7) Lymphocytes # (Auto) 1.8 x10^3/uL (1.0-4.8) Monocytes # (Auto) 0.6 x10^3/uL (0.0-1.1) Eosinophils # (Auto) 0.1 x10^3/uL (0.0-0.7) Basophils # (Auto) 0.0 x10^3/uL (0.0-0.2) Sodium Level 138 mmol/L (136-145) Potassium Level 4.0 mmol/L (3.5-5.1) Chloride Level 105 mmol/L (98-107) Carbon Dioxide Level 22 mmol/L (21-32) Anion Gap 11 (6-14) Blood Urea Nitrogen 10 mg/dL (7-20) Creatinine 0.6 mg/dL (0.6-1.0) Estimated GFR (Cockcroft-Gault) 141.1 BUN/Creatinine Ratio 17 (6-20) Glucose Level 87 mg/dL (70-99) Calcium Level 9.3 mg/dL (8.5-10.1) Total Bilirubin 0.4 mg/dL (0.2-1.0) Aspartate Amino Transf (AST/SGOT) 16 U/L (15-37) Alanine Aminotransferase (ALT/SGPT) 7 U/L (14-59) Alkaline Phosphatase 69 U/L (46-116) Total Protein 7.6 g/dL (6.4-8.2) Albumin 3.4 g/dL (3.4-5.0) Albumin/Globulin Ratio 0.8 (1.0-1.7) Lipase 197 U/L (73-393) Stool Occult Blood Negative (NEG) Urine Collection Type Unknown Urine Color Yellow Urine Clarity Clear Urine pH 7.0 Urine Specific [place] >=1.030 Urine Protein Negative mg/dL (NEG-TRACE) Urine Glucose (UA) Negative mg/dL (NEG) Urine Ketones (Stick) Negative mg/dL (NEG) Urine Blood Negative (NEG) Urine Nitrite Negative (NEG) Urine Bilirubin Negative (NEG) Urine Urobilinogen Dipstick 0.2 mg/dL (0.2 mg/dL) Urine Leukocyte Esterase Negative (NEG) Urine RBC Occ /HPF (0-2) Urine WBC Occ /HPF (0-4) Urine Squamous Epithelial Cells Many /LPF Urine Bacteria Moderate /HPF (0-FEW) Urine Opiates Screen Neg (NEG) Urine Methadone Screen Neg (NEG) Urine Barbiturates Neg (NEG) Urine Phencyclidine Screen Neg (NEG) Urine Amphetamine/Methamphetamine Neg (NEG) Urine Benzodiazepines Screen Neg (NEG) Urine Cocaine Screen Neg (NEG) Urine Cannabinoids Screen Neg (NEG) Urine Ethyl Alcohol Neg (NEG) Medications Current Medications Fentanyl Citrate (Fentanyl 2ml Vial) 100 mcg STK-MED ONCE .ROUTE ; Start 11/25/19 at 13:44; Stop 11/25/19 at 13:44; Status DC Fentanyl Citrate (Fentanyl 2ml Vial) 50 mcg 1X ONCE IV Last administered on 11/25/19at 13:47; Start 11/25/19 at 13:45; Stop 11/25/19 at 13:48; Status DC Pantoprazole Sodium (PROTONIX VIAL for IV PUSH) 40 mg 1X ONCE IVP Last administered on 11/25/19at 13:50; Start 11/25/19 at 13:45; Stop 11/25/19 at 13:48; Status DC Pantoprazole Sodium (PROTONIX VIAL for IV PUSH) 40 mg STK-MED ONCE IVP ; Start 11/25/19 at 13:48; Stop 11/25/19 at 13:49; Status DC Iohexol (Omnipaque 300 Mg/ml) 75 ml 1X ONCE IV Last administered on 11/25/19at 14:37; Start 11/25/19 at 14:15; Stop 11/25/19 at 14:16; Status DC Info (CONTRAST GIVEN -- Rx MONITORING) 1 each PRN DAILY PRN MC SEE COMMENTS; Start 11/25/19 at 14:30; Stop 11/27/19 at 14:29 Fentanyl Citrate (Fentanyl 2ml Vial) 50 mcg 1X ONCE IVP Last administered on 11/25/19at 15:31; Start 11/25/19 at 15:30; Stop 11/25/19 at 15:31; Status DC Ondansetron HCl (Zofran) 4 mg STK-MED ONCE .ROUTE ; Start 11/25/19 at 15:49; Stop 11/25/19 at 15:49; Status DC Fentanyl Citrate (Fentanyl 2ml Vial) 50 mcg 1X ONCE IVP Last administered on 11/25/19at 19:59; Start 11/25/19 at 19:15; Stop 11/25/19 at 19:16; Status DC Ondansetron HCl (Zofran) 4 mg PRN Q8HRS PRN IV NAUSEA/VOMITING; Start 11/25/19 at 19:30; Stop 11/26/19 at 19:29; Status DC Fentanyl Citrate (Fentanyl 2ml Vial) 50 mcg PRN Q1HR PRN IV PAIN Last administered on 11/26/19at 03:37; Start 11/25/19 at 19:30; Stop 11/26/19 at 19:29; Status DC Sodium Chloride 1,000 ml @ 100 mls/hr Q10H IV Last administered on 11/26/19at 10:01; Start 11/25/19 at 19:16; Stop 11/26/19 at 19:15; Status DC Fentanyl Citrate (Fentanyl 2ml Vial) 50 mcg PRN Q1HR PRN IVP PAIN Last administered on 11/27/19at 03:37; Start 11/26/19 at 20:00 Active Scripts Active Ibuprofen 600 Mg Tablet 600 Mg PO Q6-8HRS PRN Reported Refresh Optive Eye Drops (Carboxymethylcellulos/Glycerin) 15 Ml Drops 1 Drop EACHEYE TID Paroxetine Cr (Paroxetine HCl) 12.5 Mg Tab.er.24h 5 Mg PO DAILY Vitals/I & O Vital Sign - Last 24 Hours 11/26/19 11/26/19 11/26/19 11/26/19 07:59 08:00 11:52 15:59 Temp 98.4 98.0 99.0 98.4 98.0 99.0 Pulse 93 96 84 Resp 20 18 18 B/P (MAP) 116/62 (80) 131/63 (85) 115/62 (79) Pulse Ox 92 96 O2 Delivery Room Air Room Air Room Air Room Air 11/26/19 11/26/19 11/26/19 11/26/19 19:00 20:00 20:17 20:47 Temp 98.0 98.0 Pulse 77 Resp 18 B/P (MAP) 120/69 (86) Pulse Ox 97 O2 Delivery Room Air Room Air Room Air Room Air 11/26/19 11/26/19 11/26/19 11/26/19 21:32 22:25 22:47 23:00 Temp 97.9 97.9 Pulse 77 Resp 18 B/P (MAP) 106/53 (70) Pulse Ox 97 O2 Delivery Room Air Room Air Room Air Room Air 11/26/19 11/27/19 11/27/19 11/27/19 23:17 03:00 03:37 04:10 Temp 98.2 98.2 Pulse 85 Resp 18 B/P (MAP) 98/59 (72) Pulse Ox 100 O2 Delivery Room Air Room Air Room Air Room Air Intake and Output 11/26/19 11/26/19 11/27/19 15:00 23:00 07:00 Intake Total 0 ml 0 ml Balance 0 ml 0 ml REJI COLEY MD Nov 27, 2019 07:56
[2019-11-27 11:00] VITALS: BP 136/72
--- NOTE | 2019-11-27 12:21 | NUR ---
SW following. Discussed with RN, pt is from home with roommates (per RN). PT/OT has been ordered. SW will continue to follow for discharge planning needs.
--- NOTE | 2019-11-27 12:31 | PDOC ---
SURGICAL PROGRESS NOTE Subjective resting says she has gallbladder pain no n/v Vital Signs Vital Signs Date Time Temp Pulse Resp B/P (MAP) Pulse Ox O2 Delivery O2 Flow Rate FiO2 11/27/19 11:00 98.2 86 17 136/72 (93) 97 Room Air 98.2 I&O Intake and Output 11/27/19 07:00 Intake Total 0 ml Balance 0 ml Intake Oral 0 ml # Voids 4 General: Alert, Cooperative, No acute distress Abdomen: Soft, Other (appears nontender on exam) Labs Laboratory Tests Test 11/25/19 13:35 11/25/19 15:15 11/25/19 16:33 White Blood Count 6.6 x10^3/uL (4.0-11.0) Red Blood Count 4.56 x10^6/uL (3.50-5.40) Hemoglobin 12.3 g/dL (12.0-15.5) Hematocrit 38.0 % (36.0-47.0) Mean Corpuscular Volume 83 fL (79-100) Mean Corpuscular Hemoglobin 27 pg (25-35) Mean Corpuscular Hemoglobin Concent 32 g/dL (31-37) Red Cell Distribution Width 12.9 % (11.5-14.5) Platelet Count 294 x10^3/uL (140-400) Neutrophils (%) (Auto) 62 % (31-73) Lymphocytes (%) (Auto) 27 % (24-48) Monocytes (%) (Auto) 9 % (0-9) Eosinophils (%) (Auto) 2 % (0-3) Basophils (%) (Auto) 1 % (0-3) Neutrophils # (Auto) 4.1 x10^3/uL (1.8-7.7) Lymphocytes # (Auto) 1.8 x10^3/uL (1.0-4.8) Monocytes # (Auto) 0.6 x10^3/uL (0.0-1.1) Eosinophils # (Auto) 0.1 x10^3/uL (0.0-0.7) Basophils # (Auto) 0.0 x10^3/uL (0.0-0.2) Sodium Level 138 mmol/L (136-145) Potassium Level 4.0 mmol/L (3.5-5.1) Chloride Level 105 mmol/L (98-107) Carbon Dioxide Level 22 mmol/L (21-32) Anion Gap 11 (6-14) Blood Urea Nitrogen 10 mg/dL (7-20) Creatinine 0.6 mg/dL (0.6-1.0) Estimated GFR (Cockcroft-Gault) 141.1 BUN/Creatinine Ratio 17 (6-20) Glucose Level 87 mg/dL (70-99) Calcium Level 9.3 mg/dL (8.5-10.1) Total Bilirubin 0.4 mg/dL (0.2-1.0) Aspartate Amino Transf (AST/SGOT) 16 U/L (15-37) Alanine Aminotransferase (ALT/SGPT) 7 U/L (14-59) Alkaline Phosphatase 69 U/L (46-116) Total Protein 7.6 g/dL (6.4-8.2) Albumin 3.4 g/dL (3.4-5.0) Albumin/Globulin Ratio 0.8 (1.0-1.7) Lipase 197 U/L (73-393) Stool Occult Blood Negative (NEG) Urine Collection Type Unknown Urine Color Yellow Urine Clarity Clear Urine pH 7.0 Urine Specific [place] >=1.030 Urine Protein Negative mg/dL (NEG-TRACE) Urine Glucose (UA) Negative mg/dL (NEG) Urine Ketones (Stick) Negative mg/dL (NEG) Urine Blood Negative (NEG) Urine Nitrite Negative (NEG) Urine Bilirubin Negative (NEG) Urine Urobilinogen Dipstick 0.2 mg/dL (0.2 mg/dL) Urine Leukocyte Esterase Negative (NEG) Urine RBC Occ /HPF (0-2) Urine WBC Occ /HPF (0-4) Urine Squamous Epithelial Cells Many /LPF Urine Bacteria Moderate /HPF (0-FEW) Urine Opiates Screen Neg (NEG) Urine Methadone Screen Neg (NEG) Urine Barbiturates Neg (NEG) Urine Phencyclidine Screen Neg (NEG) Urine Amphetamine/Methamphetamine Neg (NEG) Urine Benzodiazepines Screen Neg (NEG) Urine Cocaine Screen Neg (NEG) Urine Cannabinoids Screen Neg (NEG) Urine Ethyl Alcohol Neg (NEG) Problem List Problems Medical Problems: (1) Abdominal pain Status: Acute (2) Cholelithiases Status: Acute Assessment/Plan will check JIM FERNANDEZ APRN Nov 27, 2019 12:31
[2019-11-27] MEDS ORDERED: MORPHINE SULFATE 4 MG/ML VIAL. IV ONE (15:00)
[2019-11-27] MEDS ORDERED: MORPHINE SULFATE 4 MG/ML VIAL. ONE (15:16)
--- NOTE | 2019-11-27 15:25 | NUR ---
Pt to Nuc Med for gall bladder scan, Morphine given per protocol by this RN, pt monitored throughout, VSS, O2sat 95%. MARTINA RN
--- NOTE | 2019-11-27 16:24 | RAD ---
EXAM: HEPATOBILIARY SCINTIGRAPHY. HISTORY: History of gallstones and abdominal pain. TECHNIQUE: 5 mCi technetium-99m Choletec were administered intravenously and scintigraphic images of the abdomen obtained. Additional imaging 30 minutes after the initial hour of imaging was also performed FINDINGS: There is prompt hepatic clearance of tracer from the blood pool. There is homogeneous distribution throughout the liver. There is no filling of the gallbladder despite clearance into the biliary tree and small bowel. IMPRESSION: 1. Nonfilling of the gallbladder on HIDA scan is consistent with cystic duct obstruction, and compatible with acute cholecystitis. Report called to the patient's inpatient floor where her nurse Ellen took the report on behalf of her ordering provider at 4:20 PM on November 27, 2019 Electronically signed by: Chiqui Kaminski MD (11/27/2019 4:21 PM) [facility]
[2019-11-27] MEDS: PIPERACILLIN/TAZOBACTAM 3.375 GM in IV NORMAL SALINE 50ML 50 ML IV SCH ×2 (17:44→23:39)
[2019-11-27 19:00] VITALS: BP 122/57
[2019-11-27 23:00] VITALS: BP 98/46
[2019-11-28] VITALS (11 sets, daily range): BP systolic 108–146; BP diastolic 57–81
[2019-11-28] MEDS: PIPERACILLIN/TAZOBACTAM 3.375 GM in IV NORMAL SALINE 50ML 50 ML IV SCH ×4 (05:55→23:20)
[2019-11-28 05:57] LABS: ALBUMIN/GLOBULIN RATIO 0.8 (1.0-1.7); CALCIUM 8.6 mg/dL (8.5-10.1); CREATININE 0.8 mg/dL (0.6-1.0); GFR 101.2; TOTAL BILIRUBIN 1.2 mg/dL (0.2-1.0)
[2019-11-28] MEDS ORDERED: IOHEXOL 300 MG/ML 50 ML VIAL. ONE (07:04)
[2019-11-28] MEDS ORDERED: SURGICEL HEMOSTAT 4X8 EACH. ONE (07:04)
[2019-11-28] MEDS ORDERED: BUPIVACAINE MPF 0.5% 30 ML VIAL. ONE (07:05)
[2019-11-28] MEDS ORDERED: DEXAMETHASONE SOD PHOS 4 MG/ML VIAL ONE (07:27)
[2019-11-28] MEDS ORDERED: fentaNYL PF VIAL 100 MCG/2 ML VIAL ONE ×2 (07:27→10:03)
[2019-11-28] MEDS ORDERED: ROCURONIUM 50 MG/5 ML VIAL. ONE (07:27)
[2019-11-28] MEDS ORDERED: PROPOFOL 20 ML IV ONE (07:27)
[2019-11-28] MEDS ORDERED: SEVOFLURANE 61 TO 120 MINUTES. IH ONE (07:27)
[2019-11-28] MEDS ORDERED: FAMOTIDINE 20 MG/2 ML VIAL ONE (07:28)
[2019-11-28] MEDS ORDERED: KETOROLAC 30 MG/ML VIAL. ONE (07:28)
[2019-11-28] MEDS ORDERED: ONDANSETRON PF 4 MG/2 ML VIAL. ONE (07:28)
[2019-11-28] MEDS ORDERED: LIDOCAINE 2% PF 5 ML VIAL. ONE ×2 (07:28→09:18)
[2019-11-28] MEDS: IV RINGERS,LACTATED 1000ML 1,000 ML IV SCH ×2 (07:45→17:36)
[2019-11-28] MEDS ORDERED: NEOSTIGMINE METHYLSULFATE 5 MG/5 ML SYRINGE. ONE (08:21)
[2019-11-28] MEDS ORDERED: GLYCOPYRROLATE 1 MG/5 ML VIAL. ONE (08:22)
--- NOTE | 2019-11-28 08:31 | PDOC ---
PROGRESS NOTES Chief Complaint Chief Complaint Cholelithiasis and gallbladder sludge. No evidence of acute cholecystitis. BY US Dilated common bile duct measures 14 mm History of Present Illness History of Present Illness Ms Milligan is a 29yo F w/ PMHx Anxiety, Depression, cerebral palsy who presented from home after she had a diarrhea bowel movement 11/25 and they helped wipe her and saw blood on the toilet paper. Patient complains of right-sided stomach lower abdominal pain. This all started 11/25 Patient has cerebral palsy. 11/27: She is alert and oriented 3. She only had diarrhea 1. She denies any nausea or vomiting. Rated the pain a 10 out of 10 in ER. She currently has no pain, asking for food. Her pain was always in her rectal area. Positive castellanos's sign. HIDA positive for cystic duct obstruction Still with pain, to OR per surgery. No further rectal pain. Plan: NPO for likely lap elba for acute cholecystitis Vitals Vitals Vital Signs Date Time Temp Pulse Resp B/P (MAP) Pulse Ox O2 Delivery O2 Flow Rate FiO2 11/28/19 07:00 97.3 87 17 138/66 (90) 97 Room Air 97.3 Physical Exam General: Alert, Cooperative, No acute distress Heart: Regular rate, Normal S1, Normal S2 Abdomen: Soft, Other (appears nontender on exam) Extremities: No clubbing, No cyanosis Skin: No rashes, No breakdown Labs LABS Laboratory Tests Test 11/28/19 04:40 Sodium Level 137 mmol/L (136-145) Potassium Level 4.0 mmol/L (3.5-5.1) Chloride Level 103 mmol/L (98-107) Carbon Dioxide Level 20 mmol/L (21-32) Anion Gap 14 (6-14) Blood Urea Nitrogen 11 mg/dL (7-20) Creatinine 0.8 mg/dL (0.6-1.0) Estimated GFR (Cockcroft-Gault) 101.2 BUN/Creatinine Ratio 14 (6-20) Glucose Level 59 mg/dL (70-99) Calcium Level 8.6 mg/dL (8.5-10.1) Total Bilirubin 1.2 mg/dL (0.2-1.0) Aspartate Amino Transf (AST/SGOT) 18 U/L (15-37) Alanine Aminotransferase (ALT/SGPT) 11 U/L (14-59) Alkaline Phosphatase 58 U/L (46-116) Total Protein 7.0 g/dL (6.4-8.2) Albumin 3.0 g/dL (3.4-5.0) Albumin/Globulin Ratio 0.8 (1.0-1.7) Assessment and Plan Assessmemt and Plan Problems Medical Problems: (1) Abdominal pain Status: Acute (2) Cholelithiases Status: Acute Comment Review of Relevant I have reviewed the following items kelly (where applicable) has been applied. Labs Laboratory Tests Test 11/28/19 04:40 Sodium Level 137 mmol/L (136-145) Potassium Level 4.0 mmol/L (3.5-5.1) Chloride Level 103 mmol/L (98-107) Carbon Dioxide Level 20 mmol/L (21-32) Anion Gap 14 (6-14) Blood Urea Nitrogen 11 mg/dL (7-20) Creatinine 0.8 mg/dL (0.6-1.0) Estimated GFR (Cockcroft-Gault) 101.2 BUN/Creatinine Ratio 14 (6-20) Glucose Level 59 mg/dL (70-99) Calcium Level 8.6 mg/dL (8.5-10.1) Total Bilirubin 1.2 mg/dL (0.2-1.0) Aspartate Amino Transf (AST/SGOT) 18 U/L (15-37) Alanine Aminotransferase (ALT/SGPT) 11 U/L (14-59) Alkaline Phosphatase 58 U/L (46-116) Total Protein 7.0 g/dL (6.4-8.2) Albumin 3.0 g/dL (3.4-5.0) Albumin/Globulin Ratio 0.8 (1.0-1.7) Laboratory Tests Test 11/28/19 04:40 Sodium Level 137 mmol/L (136-145) Potassium Level 4.0 mmol/L (3.5-5.1) Chloride Level 103 mmol/L (98-107) Carbon Dioxide Level 20 mmol/L (21-32) Anion Gap 14 (6-14) Blood Urea Nitrogen 11 mg/dL (7-20) Creatinine 0.8 mg/dL (0.6-1.0) Estimated GFR (Cockcroft-Gault) 101.2 BUN/Creatinine Ratio 14 (6-20) Glucose Level 59 mg/dL (70-99) Calcium Level 8.6 mg/dL (8.5-10.1) Total Bilirubin 1.2 mg/dL (0.2-1.0) Aspartate Amino Transf (AST/SGOT) 18 U/L (15-37) Alanine Aminotransferase (ALT/SGPT) 11 U/L (14-59) Alkaline Phosphatase 58 U/L (46-116) Total Protein 7.0 g/dL (6.4-8.2) Albumin 3.0 g/dL (3.4-5.0) Albumin/Globulin Ratio 0.8 (1.0-1.7) Medications Current Medications Fentanyl Citrate (Fentanyl 2ml Vial) 100 mcg STK-MED ONCE .ROUTE ; Start 11/25/19 at 13:44; Stop 11/25/19 at 13:44; Status DC Fentanyl Citrate (Fentanyl 2ml Vial) 50 mcg 1X ONCE IV Last administered on 11/25/19at 13:47; Start 11/25/19 at 13:45; Stop 11/25/19 at 13:48; Status DC Pantoprazole Sodium (PROTONIX VIAL for IV PUSH) 40 mg 1X ONCE IVP Last administered on 11/25/19at 13:50; Start 11/25/19 at 13:45; Stop 11/25/19 at 13:48; Status DC Pantoprazole Sodium (PROTONIX VIAL for IV PUSH) 40 mg STK-MED ONCE IVP ; Start 11/25/19 at 13:48; Stop 11/25/19 at 13:49; Status DC Iohexol (Omnipaque 300 Mg/ml) 75 ml 1X ONCE IV Last administered on 11/25/19at 14:37; Start 11/25/19 at 14:15; Stop 11/25/19 at 14:16; Status DC Info (CONTRAST GIVEN -- Rx MONITORING) 1 each PRN DAILY PRN MC SEE COMMENTS; Start 11/25/19 at 14:30; Stop 11/27/19 at 14:29; Status DC Fentanyl Citrate (Fentanyl 2ml Vial) 50 mcg 1X ONCE IVP Last administered on 11/25/19at 15:31; Start 11/25/19 at 15:30; Stop 11/25/19 at 15:31; Status DC Ondansetron HCl (Zofran) 4 mg STK-MED ONCE .ROUTE ; Start 11/25/19 at 15:49; Stop 11/25/19 at 15:49; Status DC Fentanyl Citrate (Fentanyl 2ml Vial) 50 mcg 1X ONCE IVP Last administered on 11/25/19at 19:59; Start 11/25/19 at 19:15; Stop 11/25/19 at 19:16; Status DC Ondansetron HCl (Zofran) 4 mg PRN Q8HRS PRN IV NAUSEA/VOMITING; Start 11/25/19 at 19:30; Stop 11/26/19 at 19:29; Status DC Fentanyl Citrate (Fentanyl 2ml Vial) 50 mcg PRN Q1HR PRN IV PAIN Last administered on 11/26/19at 03:37; Start 11/25/19 at 19:30; Stop 11/26/19 at 19:29; Status DC Sodium Chloride 1,000 ml @ 100 mls/hr Q10H IV Last administered on 11/26/19at 10:01; Start 11/25/19 at 19:16; Stop 11/26/19 at 19:15; Status DC Fentanyl Citrate (Fentanyl 2ml Vial) 50 mcg PRN Q1HR PRN IVP PAIN Last administered on 11/27/19at 03:37; Start 11/26/19 at 20:00 Morphine Sulfate (Morphine Sulfate) 4 mg 1X ONCE IV Last administered on 11/27/19at 15:27; Start 11/27/19 at 15:00; Stop 11/27/19 at 15:04; Status DC Morphine Sulfate (Morphine Sulfate) 4 mg STK-MED ONCE .ROUTE ; Start 11/27/19 at 15:16; Stop 11/27/19 at 15:17; Status DC Piperacillin Sod/ Tazobactam Sod 3.375 gm/Sodium Chloride 50 ml @ 100 mls/hr Q6HRS IV Last administered on 11/28/19at 05:55; Start 11/27/19 at 18:00 Iohexol (Omnipaque 300 Mg/ml) 50 ml STK-MED ONCE .ROUTE ; Start 11/28/19 at 07:04; Stop 11/28/19 at 07:04; Status DC Cellulose (Surgicel Hemostat 4x8) 1 each STK-MED ONCE .ROUTE ; Start 11/28/19 at 07:04; Stop 11/28/19 at 07:05; Status DC Bupivacaine HCl (Sensorcaine Mpf 0.5%) 30 ml STK-MED ONCE .ROUTE ; Start 11/28/19 at 07:05; Stop 11/28/19 at 07:05; Status DC Rocuronium [place] (Zemuron) 50 mg STK-MED ONCE .ROUTE ; Start 11/28/19 at 07:27; Stop 11/28/19 at 07:27; Status DC Fentanyl Citrate (Fentanyl 2ml Vial) 100 mcg STK-MED ONCE .ROUTE ; Start 11/28/19 at 07:27; Stop 11/28/19 at 07:27; Status DC Sevoflurane (Ultane) 60 ml STK-MED ONCE IH ; Start 11/28/19 at 07:27; Stop 11/28/19 at :28; Status DC Dexamethasone Sodium Phosphate (Decadron) 4 mg STK-MED ONCE .ROUTE ; Start 11/28/19 at 07:27; Stop 11/28/19 at 07:28; Status DC Propofol 20 ml @ As Directed STK-MED ONCE IV ; Start 11/28/19 at 07:27; Stop 11/28/19 at 07:28; Status DC Lidocaine HCl (Lidocaine Pf 2% Vial) 5 ml STK-MED ONCE .ROUTE ; Start 11/28/19 at 07:28; Stop 11/28/19 at 07:28; Status DC Famotidine (Pepcid Vial) 20 mg STK-MED ONCE .ROUTE ; Start 11/28/19 at 07:28; Stop 11/28/19 at 07:28; Status DC Ondansetron HCl (Zofran) 4 mg STK-MED ONCE .ROUTE ; Start 11/28/19 at 07:28; Stop 11/28/19 at 07:28; Status DC Ketorolac Tromethamine (Toradol 30mg Vial) 30 mg STK-MED ONCE .ROUTE ; Start 11/28/19 at 07:28; Stop 11/28/19 at 07:28; Status DC Neostigmine [place] (Neostigmine Methylsulfate) 5 mg STK-MED ONCE .ROUTE ; Start 11/28/19 at 08:21; Stop 11/28/19 at 08:22; Status DC Glycopyrrolate (Robinul) 1 mg STK-MED ONCE .ROUTE ; Start 11/28/19 at 08:22; Stop 11/28/19 at 08:22; Status DC Active Scripts Active Ibuprofen 600 Mg Tablet 600 Mg PO Q6-8HRS PRN Reported Refresh Optive Eye Drops (Carboxymethylcellulos/Glycerin) 15 Ml Drops 1 Drop EACHEYE TID Paroxetine Cr (Paroxetine HCl) 12.5 Mg Tab.er.24h 5 Mg PO DAILY Vitals/I & O Vital Sign - Last 24 Hours 11/27/19 11/27/19 11/27/19 11/27/19 11:00 15:27 16:46 19:00 Temp 98.2 98.2 98.2 98.2 Pulse 86 79 Resp 17 14 18 B/P (MAP) 136/72 (93) 122/57 (78) Pulse Ox 97 96 96 O2 Delivery Room Air Room Air Room Air Room Air 11/27/19 11/27/19 11/28/19 11/28/19 20:30 23:00 03:00 07:00 Temp 98.2 98.7 97.3 98.2 98.7 97.3 Pulse 82 77 87 Resp 18 18 17 B/P (MAP) 98/46 (63) 117/67 (84) 138/66 (90) Pulse Ox 95 95 97 O2 Delivery Room Air Room Air Room Air Room Air Intake and Output 11/27/19 11/27/19 11/28/19 15:00 23:00 07:00 Intake Total 0 ml 50 ml 50 ml Balance 0 ml 50 ml 50 ml Images HIDA - There is prompt hepatic clearance of tracer from the blood pool. There is homogeneous distribution throughout the liver. There is no filling of the gall bladder despite clearance into the biliary tree and small bowel. IMPRESSION: 1. Nonfilling of the gallbladder on HIDA scan is consistent with cystic duct obstruction, and compatible with acute cholecystitis. REJI COLEY MD Nov 28, 2019 08:31
--- NOTE | 2019-11-28 09:01 | RAD ---
Intraoperative cholangiogram fluoroscopy 11/28/2019 8:00 AM INDICATION: Cholangiogram in the OR COMPARISON: Limited abdominal ultrasound 11/25/2019 TECHNIQUE: 6 fluoroscopic spot views are provided. Fluoroscopy time: 0.39 minutes FINDINGS: Fluoroscopy is provided for intraoperative use. Cholecystectomy changes are present. Mild dilatation of the cystic duct and common bile duct. There is opacification of the duodenum. Mild intrahepatic biliary ductal dilatation. Small rounded filling defect is identified within the distal common bile duct. IMPRESSION: 1. Small rounded filling defect suspected within the distal common bile duct. Findings could reflect choledocholithiasis. 2. Please refer to the separate operative report for further details. Electronically signed by: Jayleen Suarez MD (11/28/2019 8:59 AM) [id number]
--- NOTE | 2019-11-28 09:29 | PDOC4 ---
Operative Note Operative Note Operative Note: Preoperative Diagnosis: Calculus cholecystitis Postoperative Diagnosis: Same Procedure: Laparoscopic cholecystectomy with intraoperative cholangiogram Surgeons: Ryan Document Review Specialist: Racheal CHERRY Anesthesia: Gen. Estimated Blood Loss: 10 mL Specimen: Gallbladder to pathology Drains: 19 Welsh OLEKSANDR Complications: None Indications: The patient is a 29-year-old female who was admitted with abdominal pain. Her evaluation shows gallstones and the HIDA scan showed no visualization of the gallbladder consistent with cystic duct obstruction.. Surgical treatment was offered by means of a laparoscopic cholecystectomy. The risks of surgery were discussed which include bleeding, infection, bile duct injury, bile leak, pain, the potential for additional surgeries or procedures. The patient understands and would like to proceed. Description: The patient was taken to the operating room and laid supine on the operating table. General anesthesia was performed. The abdomen was prepped with ChloraPrep and draped in a standard surgical fashion. A small infraumbilical incision was made with a scalpel. The Veress needle was then inserted and a pneumoperitoneum was then created. A 5 mm trocar was then inserted and the laparoscope was introduced. In the upper midabdomen a 5 mm trocar was inserted and in the right upper quadrant one 5 mm trocar and one 2.3 mm mini lap grasper were inserted.. The gallbladder was retracted cephalad. The cystic duct was dissected free from surrounding tissues. One clip was placed on the duct near the gallbladder junction. An opening was made in the duct and a cholangiocatheter placed within and secured with a clip. Using contrast dye and fluoroscopy an intraoperative cholangiogram was performed. This showed some dilation of the major bile ducts. Contrast did pass into the duodenum however there was a rounded filling defect most consistent with a distal common duct stone. The clip and catheter were then withdrawn. Three clips were placed on the cystic duct and it was divided. The cystic artery was then identified, dissected free, doubly clipped and divided as well. The gallbladder was then mobilized away from the liver with cautery. The umbilical 5 millimeter trocar was exchanged for an 11 millimeter trocar. A 19 Welsh round drain was left in the gallbladder fossa with an exit site in the right port incision. This was secured to the skin with 2-0 silk. The gallbladder was then placed in an endoscopic bag and extracted at the umbilical trocar site. The fascia there was closed with an 0 Vicryl suture. All blood and irrigation fluid was suctioned and hemostasis was good. The remaining ports were removed and the pneumoperitoneum was relieved. The skin incisions were closed using 4-0 Monocryl suture. Steri-Strips and dressings were then applied. The patient tolerated the procedure well and was sent to the recovery room in stable condition. At the end of the case all counts were correct. SAMARA BAEZA MD Nov 28, 2019 09:29
[2019-11-28 09:41] LABS: U PREG PATIENT NEGATIVE (NEG)
[2019-11-28] MEDS: fentaNYL PF VIAL 100 MCG/2 ML VIAL IV PRN ×5 (09:43→10:35)
[2019-11-28] MEDS ORDERED: MIDAZOLAM HCL/PF 2 MG/2 ML VIAL. IV PRN (09:45)
[2019-11-28] MEDS: fentaNYL PF VIAL 100 MCG/2 ML VIAL IVP PRN ×2 (11:42→16:11)
[2019-11-28] MEDS: HYDROcodone/APAP 5/325MG 1 TAB TABLET PO PRN ×3 (11:43→23:20)
--- NOTE | 2019-11-28 12:59 | PDOC2 ---
GI CONSULT Reason For Consult: CBD filling defect HPI: HPI: 29 y/o female w/ cerebral palsy who underwent cholecystectomy w/ Dr. Davis this morning for calculous cholecystitis. Imaging prior to surgery noted dilated CBD and IOC was abnormal w/ CBD filling defect. On 11/25, bili was normal at 0.4 and today is 1.2. AST, ALT, and Alk Phos are WNL. Still has quite a bit of upper abdominal pain. Denies chronic GI issues including GERD or chronic constipation or diarrhea (though did have some diarrhea over the weekend - says last on Wednesday). No previous EGD or colonoscopy. No liver or pancreas history. PMH: PMH: cerebral palsy, anxiety FH: Family History: No pertinent hx Social History: Smoke: No ALCOHOL: none Drugs: None ROS: GEN: Denies fevers, chills, sweats HEENT: Denies blurred vision, sore throat CV: Denies chest pain RESP: Denies shortness of air, cough GI: Per HPI : Denies hematuria, dysuria ENDO: Denies weight changes NEURO: Denies confusion, dizziness MSK: Denies weakness, joint pain/swelling SKIN: Denies jaundice, pruritus Vitals: Vitals: Vital Signs Date Time Temp Pulse Resp B/P (MAP) Pulse Ox O2 Delivery O2 Flow Rate FiO2 11/28/19 12:11 16 97 Nasal Cannula 2.0 11/28/19 10:40 68 109/62 (78) 11/28/19 10:25 98.2 98.2 Labs: Labs: Laboratory Tests Test 11/28/19 04:40 11/28/19 07:57 Sodium Level 137 mmol/L (136-145) Potassium Level 4.0 mmol/L (3.5-5.1) Chloride Level 103 mmol/L (98-107) Carbon Dioxide Level 20 mmol/L (21-32) Anion Gap 14 (6-14) Blood Urea Nitrogen 11 mg/dL (7-20) Creatinine 0.8 mg/dL (0.6-1.0) Estimated GFR (Cockcroft-Gault) 101.2 BUN/Creatinine Ratio 14 (6-20) Glucose Level 59 mg/dL (70-99) Calcium Level 8.6 mg/dL (8.5-10.1) Total Bilirubin 1.2 mg/dL (0.2-1.0) Aspartate Amino Transf (AST/SGOT) 18 U/L (15-37) Alanine Aminotransferase (ALT/SGPT) 11 U/L (14-59) Alkaline Phosphatase 58 U/L (46-116) Total Protein 7.0 g/dL (6.4-8.2) Albumin 3.0 g/dL (3.4-5.0) Albumin/Globulin Ratio 0.8 (1.0-1.7) Urine Test Negative (NEG) Allergies: Coded Allergies: No Known Drug Allergies (Unverified , 11/25/19) Medications: Current Medications Medications (Trade) Dose Ordered Sig/Clive Route PRN Reason Start Time Stop Time Status Last Admin Dose Admin Morphine Sulfate (Morphine Sulfate) 4 mg 1X ONCE IV 11/27/19 15:00 11/27/19 15:04 DC 11/27/19 15:27 Piperacillin Sod/ Tazobactam Sod 3.375 gm/Sodium Chloride 50 ml @ 100 mls/hr Q6HRS IV 11/27/19 18:00 11/28/19 12:12 Iohexol (Omnipaque 300 Mg/ml) 50 ml STK-MED ONCE .ROUTE 11/28/19 07:04 11/28/19 07:04 DC 11/28/19 08:32 Bupivacaine HCl (Sensorcaine Mpf 0.5%) 30 ml STK-MED ONCE .ROUTE 11/28/19 07:05 11/28/19 07:05 DC 11/28/19 08:26 Acetaminophen/ Hydrocodone Bitart (Lortab 5/325) 1 tab PRN Q4HRS PRN PO PAIN 11/28/19 09:30 11/28/19 11:43 Fentanyl Citrate (Fentanyl 2ml Vial) 25 mcg PRN Q5MIN PRN IV X 2 DOSES FOR PAIN 11/28/19 09:45 11/29/19 09:44 11/28/19 10:35 Fentanyl Citrate (Fentanyl 2ml Vial) 50 mcg PRN Q5MIN PRN IV X 2 DOSES FOR PAIN 11/28/19 09:45 11/29/19 09:44 11/28/19 10:15 Ringer's Solution 1,000 ml @ 125 mls/hr Q8H IV 11/28/19 09:36 11/28/19 21:35 11/28/19 07:45 Imaging: Imaging: CT A/P 2 FINDINGS: Evaluation of the lower thorax demonstrates no infiltrate or pleural effusion. There is suggestion of distal esophageal mucosal thickening, not clearly within limits to suggest esophagitis. No suspicious hepatic lesion is seen. There is cholelithiasis. There is common bile duct dilatation. The pancreas, spleen, adrenal glands and kidneys are unremarkable. There is no appendicitis. No abnormally thickened or dilated loop of bowel is seen. The urinary bladder is unremarkable. The uterus is unremarkable. There are small ovarian follicles and there is a small amount of pelvic free fluid, within physi ologic limits. The aorta is normal in caliber. There is no lymphadenopathy. There is no suspicious osseous lesion. IMPRESSION: 1. Cholelithiasis. 2. No convincing acute abdominal or pelvic finding. Abd US 2 FINDINGS: The liver demonstrates normal echogenicity without focal lesions. The liver measures 14.2 cm. The portal vein is patent with normal antegrade flow. Cholelithiasis and gallbladder sludge. No wall thickening or pericholecystic fluid. Negative sonographic Yañez's sign. No intrahepatic or extrahepatic biliary dilatation. The common bile duct measures 14 mm. Main pancreatic duct at upper limits of normal measuring 3 mm. The right kidney has normal echogenicity and measures 9.5 cm. No hydronephrosis, shadowing stones or suspicious masses seen.No ascites or fluid collections. The aorta and IVC are normal diameter where visualized. IMPRESSION: 1. Cholelithiasis and gallbladder sludge. No evidence of acute cholecystitis. 2. Dilated common bile duct measures 14 mm. HIDA 2/3 IMPRESSION: 1. Nonfilling of the gallbladder on HIDA scan is consistent with cystic duct obstruction, and compatible with acute cholecystitis. IOC 2/ IMPRESSION: 1. Small rounded filling defect suspected within the distal common bile duct. Findings could reflect choledocholithiasis. 2. Please refer to the separate operative report for further details. PE: GEN: NAD, resting HEENT: Atraumatic, PERRL, voice is quiet/hoarse LUNGS: clear anteriorly, nasal cannula HEART: RRR ABD: soft, quiet, incisional tenderness, has ice pack EXTREMITY: contractures SKIN: No rashes, no jaundice NEURO/PSYCH: A & O 3 A/P: A/P: Calculous cholecystitis s/p cholecystectomy 2/4/20 Dilated CBD, abnormal IOC - LFTs normal so far except bili 1.2 today Cerebral palsy CRC screen - average risk -- Reviewed w/ Dr. Hadley - monitor LFTs, consider ERCP if elevated. ALY COUCH Nov 28, 2019 12:59
--- NOTE | 2019-11-28 16:01 | NUR ---
SW following. Discussed with RN, pt had surgery today. SW met with pt, pt reported her long term is called [facility] ([phone]). SW contacted [facility], left a voicemail requesting a call back. PT/OT recommending home with assistance. [facility] will continue to follow.
--- NOTE | 2019-11-28 17:50 | NUR ---
IV fluids non-administered around 1800. IV fluids were for surgery use only
[2019-11-29 03:00] VITALS: BP 122/71
[2019-11-29] MEDS: HYDROcodone/APAP 5/325MG 1 TAB TABLET PO PRN ×4 (05:51→23:51)
[2019-11-29] MEDS: PIPERACILLIN/TAZOBACTAM 3.375 GM in IV NORMAL SALINE 50ML 50 ML IV SCH ×4 (05:51→23:52)
[2019-11-29 07:00] VITALS: BP 109/72
[2019-11-29 08:28] LABS: HEMOGLOBIN 11.5 g/dL (12.0-15.5); RED BLOOD COUNT 4.31 x10^6/uL (3.50-5.40); RED CELL DISTRIBUTION WIDTH 12.6 % (11.5-14.5)
[2019-11-29 08:59] LABS: ALBUMIN 3.1 g/dL (3.4-5.0); ALBUMIN/GLOBULIN RATIO 0.9 (1.0-1.7); CALCIUM 8.7 mg/dL (8.5-10.1); CREATININE 0.9 mg/dL (0.6-1.0); GFR 88.4; TOTAL BILIRUBIN 1.2 mg/dL (0.2-1.0); TOTAL PROTEIN 6.7 g/dL (6.4-8.2)
--- NOTE | 2019-11-29 09:17 | PDOC ---
Subjective: Subjective: Pain is better, tolerating clears. Objective: Vital Signs: Vital Signs Date Time Temp Pulse Resp B/P (MAP) Pulse Ox O2 Delivery O2 Flow Rate FiO2 11/29/19 07:00 98.2 86 18 109/72 (84) 94 Room Air 98.2 11/28/19 12:11 2.0 PE: GEN: NAD LUNGS: CTAB HEART: RRR ABD: soft, quiet, drain, less tender NEURO/PSYCH: A & O 3 A/P: Calculous cholecystitis s/p cholecystectomy Dilated CBD, abnormal IOC - LFTs stable -- Pain improved, LFTs stable. No plans for ERCP at this time. ?advance diet Hemodynamically unstable?: No Is patient in severe pain?: No Is NPO status required?: No ALY COUCH Nov 29, 2019 09:17
--- NOTE | 2019-11-29 10:07 | PDOC ---
PROGRESS NOTES Chief Complaint Chief Complaint Acute Calculous cholecystitis s/p cholecystectomy Dilated CBD, abnormal IOC - LFTs stable Cerebral palsy Gait instability UTI - proteus, tejada -sensitive. Has been on zosyn, will have had 3 days treatment. History of Present Illness History of Present Illness Ms Milligan is a 29yo F w/ PMHx Anxiety, Depression, cerebral palsy who presented from home after she had a diarrhea bowel movement 11/25 and they helped wipe her and saw blood on the toilet paper. Patient complains of right-sided stomach lower abdominal pain. This all started 11/25 Patient has cerebral palsy. 11/27: She is alert and oriented 3. She only had diarrhea 1. She denies any n ausea or vomiting. Rated the pain a 10 out of 10 in ER. She currently has no pain, asking for food. Her pain was always in her rectal area. Positive castellanos's sign. HIDA positive for cystic duct obstruction 11/28: Lap elba Still with pain, has a bit of an appetite. No further rectal pain. No SOB or CP. Plan: Rehab modalities, she wishes to ambulated better, has not had PT for some time. Vitals Vitals Vital Signs Date Time Temp Pulse Resp B/P (MAP) Pulse Ox O2 Delivery O2 Flow Rate FiO2 11/29/19 09:38 20 94 Room Air 11/29/19 07:00 98.2 86 109/72 (84) 98.2 11/28/19 12:11 2.0 Physical Exam General: Alert, Cooperative, No acute distress Heart: Regular rate, Normal S1, Normal S2 Abdomen: Soft, Other (appears nontender on exam) Extremities: No clubbing, No cyanosis Skin: No rashes, No breakdown Labs LABS Laboratory Tests Test 11/29/19 07:03 White Blood Count 7.0 x10^3/uL (4.0-11.0) Red Blood Count 4.31 x10^6/uL (3.50-5.40) Hemoglobin 11.5 g/dL (12.0-15.5) Hematocrit 36.0 % (36.0-47.0) Mean Corpuscular Volume 84 fL (79-100) Mean Corpuscular Hemoglobin 27 pg (25-35) Mean Corpuscular Hemoglobin Concent 32 g/dL (31-37) Red Cell Distribution Width 12.6 % (11.5-14.5) Platelet Count 293 x10^3/uL (140-400) Sodium Level 139 mmol/L (136-145) Potassium Level 4.0 mmol/L (3.5-5.1) Chloride Level 104 mmol/L (98-107) Carbon Dioxide Level 21 mmol/L (21-32) Anion Gap 14 (6-14) Blood Urea Nitrogen 10 mg/dL (7-20) Creatinine 0.9 mg/dL (0.6-1.0) Estimated GFR (Cockcroft-Gault) 88.4 BUN/Creatinine Ratio 11 (6-20) Glucose Level 95 mg/dL (70-99) Calcium Level 8.7 mg/dL (8.5-10.1) Total Bilirubin 1.2 mg/dL (0.2-1.0) Aspartate Amino Transf (AST/SGOT) 22 U/L (15-37) Alanine Aminotransferase (ALT/SGPT) 15 U/L (14-59) Alkaline Phosphatase 64 U/L (46-116) Total Protein 6.7 g/dL (6.4-8.2) Albumin 3.1 g/dL (3.4-5.0) Albumin/Globulin Ratio 0.9 (1.0-1.7) Assessment and Plan Assessmemt and Plan Problems Medical Problems: (1) Abdominal pain Status: Acute (2) Cholelithiases Status: Acute Comment Review of Relevant I have reviewed the following items kelly (where applicable) has been applied. Labs Laboratory Tests Test 11/28/19 04:40 11/28/19 07:57 11/29/19 07:03 Sodium Level 137 mmol/L (136-145) 139 mmol/L (136-145) Potassium Level 4.0 mmol/L (3.5-5.1) 4.0 mmol/L (3.5-5.1) Chloride Level 103 mmol/L (98-107) 104 mmol/L (98-107) Carbon Dioxide Level 20 mmol/L (21-32) 21 mmol/L (21-32) Anion Gap 14 (6-14) 14 (6-14) Blood Urea Nitrogen 11 mg/dL (7-20) 10 mg/dL (7-20) Creatinine 0.8 mg/dL (0.6-1.0) 0.9 mg/dL (0.6-1.0) Estimated GFR (Cockcroft-Gault) 101.2 88.4 BUN/Creatinine Ratio 14 (6-20) 11 (6-20) Glucose Level 59 mg/dL (70-99) 95 mg/dL (70-99) Calcium Level 8.6 mg/dL (8.5-10.1) 8.7 mg/dL (8.5-10.1) Total Bilirubin 1.2 mg/dL (0.2-1.0) 1.2 mg/dL (0.2-1.0) Aspartate Amino Transf (AST/SGOT) 18 U/L (15-37) 22 U/L (15-37) Alanine Aminotransferase (ALT/SGPT) 11 U/L (14-59) 15 U/L (14-59) Alkaline Phosphatase 58 U/L (46-116) 64 U/L (46-116) Total Protein 7.0 g/dL (6.4-8.2) 6.7 g/dL (6.4-8.2) Albumin 3.0 g/dL (3.4-5.0) 3.1 g/dL (3.4-5.0) Albumin/Globulin Ratio 0.8 (1.0-1.7) 0.9 (1.0-1.7) Urine Test Negative (NEG) White Blood Count 7.0 x10^3/uL (4.0-11.0) Red Blood Count 4.31 x10^6/uL (3.50-5.40) Hemoglobin 11.5 g/dL (12.0-15.5) Hematocrit 36.0 % (36.0-47.0) Mean Corpuscular Volume 84 fL (79-100) Mean Corpuscular Hemoglobin 27 pg (25-35) Mean Corpuscular Hemoglobin Concent 32 g/dL (31-37) Red Cell Distribution Width 12.6 % (11.5-14.5) Platelet Count 293 x10^3/uL (140-400) Laboratory Tests Test 11/29/19 07:03 White Blood Count 7.0 x10^3/uL (4.0-11.0) Red Blood Count 4.31 x10^6/uL (3.50-5.40) Hemoglobin 11.5 g/dL (12.0-15.5) Hematocrit 36.0 % (36.0-47.0) Mean Corpuscular Volume 84 fL (79-100) Mean Corpuscular Hemoglobin 27 pg (25-35) Mean Corpuscular Hemoglobin Concent 32 g/dL (31-37) Red Cell Distribution Width 12.6 % (11.5-14.5) Platelet Count 293 x10^3/uL (140-400) Sodium Level 139 mmol/L (136-145) Potassium Level 4.0 mmol/L (3.5-5.1) Chloride Level 104 mmol/L (98-107) Carbon Dioxide Level 21 mmol/L (21-32) Anion Gap 14 (6-14) Blood Urea Nitrogen 10 mg/dL (7-20) Creatinine 0.9 mg/dL (0.6-1.0) Estimated GFR (Cockcroft-Gault) 88.4 BUN/Creatinine Ratio 11 (6-20) Glucose Level 95 mg/dL (70-99) Calcium Level 8.7 mg/dL (8.5-10.1) Total Bilirubin 1.2 mg/dL (0.2-1.0) Aspartate Amino Transf (AST/SGOT) 22 U/L (15-37) Alanine Aminotransferase (ALT/SGPT) 15 U/L (14-59) Alkaline Phosphatase 64 U/L (46-116) Total Protein 6.7 g/dL (6.4-8.2) Albumin 3.1 g/dL (3.4-5.0) Albumin/Globulin Ratio 0.9 (1.0-1.7) Microbiology 11/25/19 Urine Culture - Preliminary, Resulted 11/25/19 Urine Culture Result 1 (SHRAVAN) - Preliminary, Resulted 11/25/19 Urine Culture Result 2 (SHRAVAN) - Preliminary, Resulted Medications Current Medications Fentanyl Citrate (Fentanyl 2ml Vial) 100 mcg STK-MED ONCE .ROUTE ; Start 11/25/19 at 13:44; Stop 11/25/19 at 13:44; Status DC Fentanyl Citrate (Fentanyl 2ml Vial) 50 mcg 1X ONCE IV Last administered on 11/25/19at 13:47; Start 11/25/19 at 13:45; Stop 11/25/19 at 13:48; Status DC Pantoprazole Sodium (PROTONIX VIAL for IV PUSH) 40 mg 1X ONCE IVP Last administered on 11/25/19at 13:50; Start 11/25/19 at 13:45; Stop 11/25/19 at 13:48; Status DC Pantoprazole Sodium (PROTONIX VIAL for IV PUSH) 40 mg STK-MED ONCE IVP ; Start 11/25/19 at 13:48; Stop 11/25/19 at 13:49; Status DC Iohexol (Omnipaque 300 Mg/ml) 75 ml 1X ONCE IV Last administered on 11/25/19at 14:37; Start 11/25/19 at 14:15; Stop 11/25/19 at 14:16; Status DC Info (CONTRAST GIVEN -- Rx MONITORING) 1 each PRN DAILY PRN MC SEE COMMENTS; S tart 11/25/19 at 14:30; Stop 11/27/19 at 14:29; Status DC Fentanyl Citrate (Fentanyl 2ml Vial) 50 mcg 1X ONCE IVP Last administered on 11/25/19at 15:31; Start 11/25/19 at 15:30; Stop 11/25/19 at 15:31; Status DC Ondansetron HCl (Zofran) 4 mg STK-MED ONCE .ROUTE ; Start 11/25/19 at 15:49; Stop 11/25/19 at 15:49; Status DC Fentanyl Citrate (Fentanyl 2ml Vial) 50 mcg 1X ONCE IVP Last administered on 11/25/19at 19:59; Start 11/25/19 at 19:15; Stop 11/25/19 at 19:16; Status DC Ondansetron HCl (Zofran) 4 mg PRN Q8HRS PRN IV NAUSEA/VOMITING; Start 11/25/19 at 19:30; Stop 11/26/19 at 19:29; Status DC Fentanyl Citrate (Fentanyl 2ml Vial) 50 mcg PRN Q1HR PRN IV PAIN Last administered on 11/26/19at 03:37; Start 11/25/19 at 19:30; Stop 11/26/19 at 19:29; Status DC Sodium Chloride 1,000 ml @ 100 mls/hr Q10H IV Last administered on 11/26/19at 10:01; Start 11/25/19 at 19:16; Stop 11/26/19 at 19:15; Status DC Fentanyl Citrate (Fentanyl 2ml Vial) 50 mcg PRN Q1HR PRN IVP PAIN Last administered on 11/28/19at 16:11; Start 11/26/19 at 20:00 Morphine Sulfate (Morphine Sulfate) 4 mg 1X ONCE IV Last administered on 11/27/19at 15:27; Start 11/27/19 at 15:00; Stop 11/27/19 at 15:04; Status DC Morphine Sulfate (Morphine Sulfate) 4 mg STK-MED ONCE .ROUTE ; Start 11/27/19 at 15:16; Stop 11/27/19 at 15:17; Status DC Piperacillin Sod/ Tazobactam Sod 3.375 gm/Sodium Chloride 50 ml @ 100 mls/hr Q6HRS IV Last administered on 11/29/19at 05:51; Start 11/27/19 at 18:00 Iohexol (Omnipaque 300 Mg/ml) 50 ml STK-MED ONCE .ROUTE Last administered on 11/28/19at 08:32; Start 11/28/19 at 07:04; Stop 11/28/19 at 07:04; Status DC Cellulose (Surgicel Hemostat 4x8) 1 each STK-MED ONCE .ROUTE ; Start 11/28/19 at 07:04; Stop 11/28/19 at 07:05; Status DC Bupivacaine HCl (Sensorcaine Mpf 0.5%) 30 ml STK-MED ONCE .ROUTE Last admi nistered on 11/28/19at 08:26; Start 11/28/19 at 07:05; Stop 11/28/19 at 07:05; Status DC Rocuronium [place] (Zemuron) 50 mg STK-MED ONCE .ROUTE ; Start 11/28/19 at 07:27; Stop 11/28/19 at 07:27; Status DC Fentanyl Citrate (Fentanyl 2ml Vial) 100 mcg STK-MED ONCE .ROUTE ; Start 11/28/19 at 07:27; Stop 11/28/19 at 07:27; Status DC Sevoflurane (Ultane) 60 ml STK-MED ONCE IH ; Start 11/28/19 at 07:27; Stop 11/28/19 at 07:28; Status DC Dexamethasone Sodium Phosphate (Decadron) 4 mg STK-MED ONCE .ROUTE ; Start 11/28/19 at 07:27; Stop 11/28/19 at 07:28; Status DC Propofol 20 ml @ As Directed STK-MED ONCE IV ; Start 11/28/19 at 07:27; Stop 11/28/19 at 07:28; Status DC Lidocaine HCl (Lidocaine Pf 2% Vial) 5 ml STK-MED ONCE .ROUTE ; Start 11/28/19 at 07:28; Stop 11/28/19 at 07:28; Status DC Famotidine (Pepcid Vial) 20 mg STK-MED ONCE .ROUTE ; Start 11/28/19 at 07:28; Stop 11/28/19 at 07:28; Status DC Ondansetron HCl (Zofran) 4 mg STK-MED ONCE .ROUTE ; Start 11/28/19 at 07:28; Stop 11/28/19 at 07:28; Status DC Ketorolac Tromethamine (Toradol 30mg Vial) 30 mg STK-MED ONCE .ROUTE ; Start 11/28/19 at 07:28; Stop 11/28/19 at 07:28; Status DC Neostigmine [place] (Neostigmine Methylsulfate) 5 mg STK-MED ONCE .ROUTE ; Start 11/28/19 at 08:21; Stop 11/28/19 at 08:22; Status DC Glycopyrrolate (Robinul) 1 mg STK-MED ONCE .ROUTE ; Start 11/28/19 at 08:22; Stop 11/28/19 at 08:22; Status DC Lidocaine HCl (Lidocaine Pf 2% Vial) 5 ml STK-MED ONCE .ROUTE ; Start 11/28/19 at 09:18; Stop 11/28/19 at 09:19; Status DC Acetaminophen/ Hydrocodone Bitart (Lortab 5/325) 1 tab PRN Q4HRS PRN PO PAIN Last administered on 11/29/19at 05:51; Start 11/28/19 at 09:30 Acetaminophen/ Hydrocodone Bitart (Lortab 5/325) 2 tab PRN Q4HRS PRN PO PAIN Last administered on 11/29/19at 09:38; Start 11/28/19 at 09:30 Midazolam HCl (Versed) 2 mg PRN 1X PRN IV PRIOR TO PROCEDURE; Start 11/28/19 at 09:45; Stop 11/29/19 at 09:44; Status DC Fentanyl Citrate (Fentanyl 2ml Vial) 25 mcg PRN Q5MIN PRN IV X 2 DOSES FOR PAIN Last administered on 11/28/19at 10:35; Start 11/28/19 at 09:45; Stop 11/29/19 at 09:44; Status DC Fentanyl Citrate (Fentanyl 2ml Vial) 50 mcg PRN Q5MIN PRN IV X 2 DOSES FOR PAIN Last administered on 11/28/19at 10:15; Start 11/28/19 at 09:45; Stop 11/29/19 at 09:44; Status DC Ringer's Solution 1,000 ml @ 125 mls/hr Q8H IV Last administered on 11/28/19at 07:45; Start 11/28/19 at 09:36; Stop 11/28/19 at 21:35; Status DC Fentanyl Citrate (Fentanyl 2ml Vial) 100 mcg STK-MED ONCE .ROUTE ; Start 11/28/19 at 10:03; Stop 11/28/19 at 10:03; Status DC Active Scripts Active Ibuprofen 600 Mg Tablet 600 Mg PO Q6-8HRS PRN Reported Refresh Optive Eye Drops (Carboxymethylcellulos/Glycerin) 15 Ml Drops 1 Drop EACHEYE TID Paroxetine Cr (Paroxetine HCl) 12.5 Mg Tab.er.24h 5 Mg PO DAILY Vitals/I & O Vital Sign - Last 24 Hours 11/28/19 11/28/19 11/28/19 11/28/19 10:07 10:10 10:15 10:25 Temp 98.2 98.2 98.2 98.2 Pulse 76 70 Resp 22 22 22 20 B/P (MAP) 106/58 108/43 Pulse Ox 95 97 98 98 O2 Delivery Room Air Nasal Cannula Nasal Cannula Nasal Cannula O2 Flow Rate 2 2.0 2.0 11/28/19 11/28/19 11/28/19 11/28/19 10:35 10:40 10:55 11:00 Pulse 68 67 Resp 20 16 B/P (MAP) 109/62 (78) 116/64 (81) Pulse Ox 99 96 95 O2 Delivery Nasal Cannula Nasal Cannula Nasal Cannula O2 Flow Rate 2.0 2.0 2.0 2.0 11/28/19 11/28/19 11/28/19 11/28/19 11:10 11:25 11:42 11:43 Pulse 68 67 Resp 20 20 B/P (MAP) 113/61 (78) 114/63 (80) Pulse Ox 96 98 97 97 O2 Delivery Nasal Cannula Nasal Cannula O2 Flow Rate 2.0 2.0 2.0 2.0 11/28/19 11/28/19 11/28/19 11/28/19 11:50 12:11 12:20 13:08 Pulse 71 72 Resp 16 20 B/P (MAP) 116/57 (76) 108/66 (80) Pulse Ox 97 97 97 96 O2 Delivery Nasal Cannula Room Air Room Air O2 Flow Rate 2.0 2.0 11/28/19 11/28/19 11/28/19 11/28/19 15:00 16:11 17:48 18:48 Temp 97.9 97.9 Pulse 76 Resp 18 24 14 14 B/P (MAP) 123/66 (85) Pulse Ox 97 O2 Delivery Room Air Room Air Room Air Room Air 11/28/19 11/28/19 11/28/19 11/28/19 19:00 19:48 20:05 23:00 Temp 98.2 98.0 98.2 98.0 Pulse 80 77 Resp 17 17 B/P (MAP) 125/62 (83) 146/81 (102) Pulse Ox 94 94 O2 Delivery Room Air Room Air Room Air Room Air 11/28/19 11/29/19 11/29/19 11/29/19 23:20 00:20 03:00 05:51 Temp 98.0 98.0 Pulse 72 Resp 17 B/P (MAP) 122/71 (88) Pulse Ox 94 O2 Delivery Room Air Room Air Room Air Room Air 11/29/19 11/29/19 11/29/19 06:51 07:00 09:38 Temp 98.2 98.2 Pulse 86 Resp 18 20 B/P (MAP) 109/72 (84) Pulse Ox 94 94 O2 Delivery Room Air Room Air Room Air Intake and Output 11/28/19 11/28/19 11/29/19 15:00 23:00 07:00 Intake Total 1800 ml 480 ml 30 ml Output Total 10 ml Balance 1790 ml 480 ml 30 ml Hemodynamically unstable?: No Is patient in severe pain?: No Is NPO status required?: No REJI COLEY MD Nov 29, 2019 10:07
--- NOTE | 2019-11-29 10:14 | PDOC ---
PROGRESS NOTES Subjective Subjective doing well Objective Objective Vital Signs Date Time Temp Pulse Resp B/P (MAP) Pulse Ox O2 Delivery O2 Flow Rate FiO2 11/29/19 09:38 20 94 Room Air 11/29/19 07:00 98.2 86 109/72 (84) 98.2 11/28/19 12:11 2.0 Intake and Output 11/29/19 07:00 Intake Total 2310 ml Output Total 10 ml Balance 2300 ml Intake Oral 510 ml IV Total 1800 ml Output Estimated Blood Loss 10 ml # Voids 3 Physical Exam Abdomen: Soft (OLEKSANDR serosang) Assessment Assessment Problems Medical Problems: (1) Abdominal pain Status: Acute (2) Cholelithiases Status: Acute Plan Plan of Care S/P lap elba, GI input noted; observe today, poss DC tomorrow; will DC drain prior to discharge Comment Review of Relevant I have reviewed the following items kelly (where applicable) has been applied. Labs Laboratory Tests Test 11/28/19 04:40 11/28/19 07:57 11/29/19 07:03 Sodium Level 137 mmol/L (136-145) 139 mmol/L (136-145) Potassium Level 4.0 mmol/L (3.5-5.1) 4.0 mmol/L (3.5-5.1) Chloride Level 103 mmol/L (98-107) 104 mmol/L (98-107) Carbon Dioxide Level 20 mmol/L (21-32) 21 mmol/L (21-32) Anion Gap 14 (6-14) 14 (6-14) Blood Urea Nitrogen 11 mg/dL (7-20) 10 mg/dL (7-20) Creatinine 0.8 mg/dL (0.6-1.0) 0.9 mg/dL (0.6-1.0) Estimated GFR (Cockcroft-Gault) 101.2 88.4 BUN/Creatinine Ratio 14 (6-20) 11 (6-20) Glucose Level 59 mg/dL (70-99) 95 mg/dL (70-99) Calcium Level 8.6 mg/dL (8.5-10.1) 8.7 mg/dL (8.5-10.1) Total Bilirubin 1.2 mg/dL (0.2-1.0) 1.2 mg/dL (0.2-1.0) Aspartate Amino Transf (AST/SGOT) 18 U/L (15-37) 22 U/L (15-37) Alanine Aminotransferase (ALT/SGPT) 11 U/L (14-59) 15 U/L (14-59) Alkaline Phosphatase 58 U/L (46-116) 64 U/L (46-116) Total Protein 7.0 g/dL (6.4-8.2) 6.7 g/dL (6.4-8.2) Albumin 3.0 g/dL (3.4-5.0) 3.1 g/dL (3.4-5.0) Albumin/Globulin Ratio 0.8 (1.0-1.7) 0.9 (1.0-1.7) Urine Test Negative (NEG) White Blood Count 7.0 x10^3/uL (4.0-11.0) Red Blood Count 4.31 x10^6/uL (3.50-5.40) Hemoglobin 11.5 g/dL (12.0-15.5) Hematocrit 36.0 % (36.0-47.0) Mean Corpuscular Volume 84 fL (79-100) Mean Corpuscular Hemoglobin 27 pg (25-35) Mean Corpuscular Hemoglobin Concent 32 g/dL (31-37) Red Cell Distribution Width 12.6 % (11.5-14.5) Platelet Count 293 x10^3/uL (140-400) Laboratory Tests Test 11/29/19 07:03 White Blood Count 7.0 x10^3/uL (4.0-11.0) Red Blood Count 4.31 x10^6/uL (3.50-5.40) Hemoglobin 11.5 g/dL (12.0-15.5) Hematocrit 36.0 % (36.0-47.0) Mean Corpuscular Volume 84 fL (79-100) Mean Corpuscular Hemoglobin 27 pg (25-35) Mean Corpuscular Hemoglobin Concent 32 g/dL (31-37) Red Cell Distribution Width 12.6 % (11.5-14.5) Platelet Count 293 x10^3/uL (140-400) Sodium Level 139 mmol/L (136-145) Potassium Level 4.0 mmol/L (3.5-5.1) Chloride Level 104 mmol/L (98-107) Carbon Dioxide Level 21 mmol/L (21-32) Anion Gap 14 (6-14) Blood Urea Nitrogen 10 mg/dL (7-20) Creatinine 0.9 mg/dL (0.6-1.0) Estimated GFR (Cockcroft-Gault) 88.4 BUN/Creatinine Ratio 11 (6-20) Glucose Level 95 mg/dL (70-99) Calcium Level 8.7 mg/dL (8.5-10.1) Total Bilirubin 1.2 mg/dL (0.2-1.0) Aspartate Amino Transf (AST/SGOT) 22 U/L (15-37) Alanine Aminotransferase (ALT/SGPT) 15 U/L (14-59) Alkaline Phosphatase 64 U/L (46-116) Total Protein 6.7 g/dL (6.4-8.2) Albumin 3.1 g/dL (3.4-5.0) Albumin/Globulin Ratio 0.9 (1.0-1.7) Microbiology 11/25/19 Urine Culture - Preliminary, Resulted 11/25/19 Urine Culture Result 1 (SHRAVAN) - Preliminary, Resulted 11/25/19 Urine Culture Result 2 (SHRAVAN) - Preliminary, Resulted Medications Current Medications Fentanyl Citrate (Fentanyl 2ml Vial) 100 mcg STK-MED ONCE .ROUTE ; Start 11/25/19 at 13:44; Stop 11/25/19 at 13:44; Status DC Fentanyl Citrate (Fentanyl 2ml Vial) 50 mcg 1X ONCE IV Last administered on 11/25/19at 13:47; Start 11/25/19 at 13:45; Stop 11/25/19 at 13:48; Status DC Pantoprazole Sodium (PROTONIX VIAL for IV PUSH) 40 mg 1X ONCE IVP Last administered on 11/25/19at 13:50; Start 11/25/19 at 13:45; Stop 11/25/19 at 13:48; Status DC Pantoprazole Sodium (PROTONIX VIAL for IV PUSH) 40 mg STK-MED ONCE IVP ; Start 11/25/19 at 13:48; Stop 11/25/19 at 13:49; Status DC Iohexol (Omnipaque 300 Mg/ml) 75 ml 1X ONCE IV Last administered on 11/25/19at 14:37; Start 11/25/19 at 14:15; Stop 11/25/19 at 14:16; Status DC Info (CONTRAST GIVEN -- Rx MONITORING) 1 each PRN DAILY PRN MC SEE COMMENTS; Start 11/25/19 at 14:30; Stop 11/27/19 at 14:29; Status DC Fentanyl Citrate (Fentanyl 2ml Vial) 50 mcg 1X ONCE IVP Last administered on 11/25/19at 15:31; Start 11/25/19 at 15:30; Stop 11/25/19 at 15:31; Status DC Ondansetron HCl (Zofran) 4 mg STK-MED ONCE .ROUTE ; Start 11/25/19 at 15:49; Stop 11/25/19 at 15:49; Status DC Fentanyl Citrate (Fentanyl 2ml Vial) 50 mcg 1X ONCE IVP Last administered on 11/25/19at 19:59; Start 11/25/19 at 19:15; Stop 11/25/19 at 19:16; Status DC Ondansetron HCl (Zofran) 4 mg PRN Q8HRS PRN IV NAUSEA/VOMITING; Start 11/25/19 at 19:30; Stop 11/26/19 at 19:29; Status DC Fentanyl Citrate (Fentanyl 2ml Vial) 50 mcg PRN Q1HR PRN IV PAIN Last administered on 11/26/19at 03:37; Start 11/25/19 at 19:30; Stop 11/26/19 at 19:29; Status DC Sodium Chloride 1,000 ml @ 100 mls/hr Q10H IV Last administered on 11/26/19at 10:01; Start 11/25/19 at 19:16; Stop 11/26/19 at 19:15; Status DC Fentanyl Citrate (Fentanyl 2ml Vial) 50 mcg PRN Q1HR PRN IVP PAIN Last administered on 11/28/19at 16:11; Start 11/26/19 at 20:00 Morphine Sulfate (Morphine Sulfate) 4 mg 1X ONCE IV Last administered on 11/27/19at 15:27; Start 11/27/19 at 15:00; Stop 11/27/19 at 15:04; Status DC Morphine Sulfate (Morphine Sulfate) 4 mg STK-MED ONCE .ROUTE ; Start 11/27/19 at 15:16; Stop 11/27/19 at 15:17; Status DC Piperacillin Sod/ Tazobactam Sod 3.375 gm/Sodium Chloride 50 ml @ 100 mls/hr Q6HRS IV Last administered on 11/29/19at 05:51; Start 11/27/19 at 18:00 Iohexol (Omnipaque 300 Mg/ml) 50 ml STK-MED ONCE .ROUTE Last administered on 11/28/19at 08:32; Start 11/28/19 at 07:04; Stop 11/28/19 at 07:04; Status DC Cellulose (Surgicel Hemostat 4x8) 1 each STK-MED ONCE .ROUTE ; Start 11/28/19 at 07:04; Stop 11/28/19 at 07:05; Status DC Bupivacaine HCl (Sensorcaine Mpf 0.5%) 30 ml STK-MED ONCE .ROUTE Last administered on 11/28/19at 08:26; Start 11/28/19 at 07:05; Stop 11/28/19 at 07:05; Status DC Rocuronium [place] (Zemuron) 50 mg STK-MED ONCE .ROUTE ; Start 11/28/19 at 07:27; Stop 11/28/19 at 07:27; Status DC Fentanyl Citrate (Fentanyl 2ml Vial) 100 mcg STK-MED ONCE .ROUTE ; Start 11/28/19 at 07:27; Stop 11/28/19 at 07:27; Status DC Sevoflurane (Ultane) 60 ml STK-MED ONCE IH ; Start 11/28/19 at 07:27; Stop 11/28/19 at 07:28; Status DC Dexamethasone Sodium Phosphate (Decadron) 4 mg STK-MED ONCE .ROUTE ; Start 11/28/19 at 07:27; Stop 11/28/19 at 07:28; Status DC Propofol 20 ml @ As Directed STK-MED ONCE IV ; Start 11/28/19 at 07:27; Stop 11/28/19 at 07:28; Status DC Lidocaine HCl (Lidocaine Pf 2% Vial) 5 ml STK-MED ONCE .ROUTE ; Start 11/28/19 at 07:28; Stop 11/28/19 at 07:28; Status DC Famotidine (Pepcid Vial) 20 mg STK-MED ONCE .ROUTE ; Start 11/28/19 at 07:28; Stop 11/28/19 at 07:28; Status DC Ondansetron HCl (Zofran) 4 mg STK-MED ONCE .ROUTE ; Start 11/28/19 at 07:28; Stop 11/28/19 at 07:28; Status DC Ketorolac Tromethamine (Toradol 30mg Vial) 30 mg STK-MED ONCE .ROUTE ; Start 11/28/19 at 07:28; Stop 11/28/19 at 07:28; Status DC Neostigmine [place] (Neostigmine Methylsulfate) 5 mg STK-MED ONCE .ROUTE ; Start 11/28/19 at 08:21; Stop 11/28/19 at 08:22; Status DC Glycopyrrolate (Robinul) 1 mg STK-MED ONCE .ROUTE ; Start 11/28/19 at 08:22; Stop 11/28/19 at 08:22; Status DC Lidocaine HCl (Lidocaine Pf 2% Vial) 5 ml STK-MED ONCE .ROUTE ; Start 11/28/19 at 09:18; Stop 11/28/19 at 09:19; Status DC Acetaminophen/ Hydrocodone Bitart (Lortab 5/325) 1 tab PRN Q4HRS PRN PO PAIN Last administered on 11/29/19at 05:51; Start 11/28/19 at 09:30 Acetaminophen/ Hydrocodone Bitart (Lortab 5/325) 2 tab PRN Q4HRS PRN PO PAIN Last administered on 11/29/19at 09:38; Start 11/28/19 at 09:30 Midazolam HCl (Versed) 2 mg PRN 1X PRN IV PRIOR TO PROCEDURE; Start 11/28/19 at 09:45; Stop 11/29/19 at 09:44; Status DC Fentanyl Citrate (Fentanyl 2ml Vial) 25 mcg PRN Q5MIN PRN IV X 2 DOSES FOR PAIN Last administered on 11/28/19at 10:35; Start 11/28/19 at 09:45; Stop 11/29/19 at 09:44; Status DC Fentanyl Citrate (Fentanyl 2ml Vial) 50 mcg PRN Q5MIN PRN IV X 2 DOSES FOR PAIN Last administered on 11/28/19at 10:15; Start 11/28/19 at 09:45; Stop 11/29/19 at 09:44; Status DC Ringer's Solution 1,000 ml @ 125 mls/hr Q8H IV Last administered on 11/28/19at 07:45; Start 11/28/19 at 09:36; Stop 11/28/19 at 21:35; Status DC Fentanyl Citrate (Fentanyl 2ml Vial) 100 mcg STK-MED ONCE .ROUTE ; Start 11/28/19 at 10:03; Stop 11/28/19 at 10:03; Status DC Active Scripts Active Ibuprofen 600 Mg Tablet 600 Mg PO Q6-8HRS PRN Reported Refresh Optive Eye Drops (Carboxymethylcellulos/Glycerin) 15 Ml Drops 1 Drop EACHEYE TID Paroxetine Cr (Paroxetine HCl) 12.5 Mg Tab.er.24h 5 Mg PO DAILY Vitals/I & O Vital Sign - Last 24 Hours 11/28/19 11/28/19 11/28/19 11/28/19 10:15 10:25 10:35 10:40 Temp 98.2 98.2 Pulse 70 68 Resp 22 20 20 16 B/P (MAP) 108/43 109/62 (78) Pulse Ox 98 98 99 96 O2 Delivery Nasal Cannula Nasal Cannula Nasal Cannula Nasal Cannula O2 Flow Rate 2.0 2.0 2.0 2.0 11/28/19 11/28/19 11/28/19 11/28/19 10:55 11:00 11:10 11:25 Pulse 67 68 67 B/P (MAP) 116/64 (81) 113/61 (78) 114/63 (80) Pulse Ox 95 96 98 O2 Delivery Nasal Cannula O2 Flow Rate 2.0 2.0 2.0 2.0 11/28/19 11/28/19 11/28/19 11/28/19 11:42 11:43 11:50 12:11 Pulse 71 Resp 20 20 16 B/P (MAP) 116/57 (76) Pulse Ox 97 97 97 97 O2 Delivery Nasal Cannula Nasal Cannula Nasal Cannula O2 Flow Rate 2.0 2.0 2.0 2.0 11/28/19 11/28/19 11/28/19 11/28/19 12:20 13:08 15:00 16:11 Temp 97.9 97.9 Pulse 72 76 Resp 20 18 24 B/P (MAP) 108/66 (80) 123/66 (85) Pulse Ox 97 96 97 O2 Delivery Room Air Room Air Room Air Room Air 2/02/1111/28/19 11/28/19 11/28/19 17:48 18:48 19:00 19:48 Temp 98.2 98.2 Pulse 80 Resp 14 14 17 B/P (MAP) 125/62 (83) Pulse Ox 94 O2 Delivery Room Air Room Air Room Air Room Air 11/28/19 11/28/19 11/28/19 11/29/19 20:05 23:00 23:20 00:20 Temp 98.0 98.0 Pulse 77 Resp 17 B/P (MAP) 146/81 (102) Pulse Ox 94 O2 Delivery Room Air Room Air Room Air Room Air 11/29/19 11/29/19 11/29/19 11/29/19 03:00 05:51 06:51 07:00 Temp 98.0 98.2 98.0 98.2 Pulse 72 86 Resp 17 18 B/P (MAP) 122/71 (88) 109/72 (84) Pulse Ox 94 94 O2 Delivery Room Air Room Air Room Air Room Air 11/29/19 09:38 Resp 20 Pulse Ox 94 O2 Delivery Room Air Intake and Output 11/28/19 11/28/19 11/29/19 15:00 23:00 07:00 Intake Total 1800 ml 480 ml 30 ml Output Total 10 ml Balance 1790 ml 480 ml 30 ml Hemodynamically unstable?: No Is patient in severe pain?: No Is NPO status required?: No SAMARA BAEZA MD Nov 29, 2019 10:14
[2019-11-29 11:00] VITALS: BP 113/64
[2019-11-29 15:00] VITALS: BP 99/62
--- NOTE | 2019-11-29 16:03 | NUR ---
SW following. Discussed with RN, pt advanced to regular diet. Possible discharge tomorrow (11/30/2019). [facility]BI has not been able to reach anyone at [facility]. ABBI will continue to follow.
--- NOTE | 2019-11-29 18:52 | PATHOLOGY ---
[facility] Accession Number: [id number] . 01 Material submitted: . gallbladder - GALLBLADDER AND CONTENTS . 01 Clinical history: . Right upper quadrant pain, cholelithiasis. . 02 Diagnosis: Gallbladder, laparoscopic cholecystectomy: - Cholelithiasis. - Chronic cholecystitis. ([facility]:deandra; 11/29/2019) [facility] 11/29/2019 1557 Local . 02 Comment: There is no evidence of malignancy. 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 02 Electronically signed: . Matt Weinberg MD, Pathologist NPI- [id number] . 01 Gross description: . Received in formalin labeled "Srini, Shara, gallbladder and contents" is an intact cholecystectomy specimen measuring 11.8 x 3.5 x 3.5 cm. The serosa is pink-christianson and smooth and the specimen is opened to reveal christianson-brown velvety and trabeculated mucosa without polyps or masses. The gallbladder contains viscous brown bile and multiple multifaceted christianson-brown calculi measuring in aggregate 4.8 x 4.0 x 1.5 cm and ranging from 0.3-1.7 cm in greatest dimension. The average wall thickness is 0.1 cm. Casing Sewer sections of the fundus and body and the cystic duct margin are submitted in A1. ([facility]; 11/28/2019) [facility] 11/28/2019 1716 Local . 02 Pathologist provided ICD-10: K80.10 . 02 CPT . 555619 Specimen Comment: A courtesy copy of this report has been sent to [phone] Specimen Comment: [id number], Specimen Comment: Report sent to ,DR ASENCIO / DR REY Performed at: 01 [facility] [address], [place], [place] [id number] MD Italo Golden MD Phone: [phone] Performed at: 02 [facility] [address], [place] [id number] MD Matt Weinberg MD Phone: [phone]
[2019-11-29 19:00] VITALS: BP 126/76
[2019-11-29] MEDS: fentaNYL PF VIAL 100 MCG/2 ML VIAL IVP PRN ×2 (21:33→23:51)
[2019-11-29 23:00] VITALS: BP 116/70
[2019-11-30 03:00] VITALS: BP 99/59
[2019-11-30] MEDS: fentaNYL PF VIAL 100 MCG/2 ML VIAL IVP PRN ×2 (03:02→04:07)
[2019-11-30] MEDS: PIPERACILLIN/TAZOBACTAM 3.375 GM in IV NORMAL SALINE 50ML 50 ML IV SCH ×4 (05:09→23:50)
[2019-11-30 05:59] LABS: ALBUMIN 2.8 g/dL (3.4-5.0); DIRECT BILIRUBIN 0.2 mg/dL (0.0-0.2); TOTAL BILIRUBIN 0.5 mg/dL (0.2-1.0); TOTAL PROTEIN 6.7 g/dL (6.4-8.2)
[2019-11-30 07:00] VITALS: BP 137/65
--- NOTE | 2019-11-30 08:52 | PDOC ---
PROGRESS NOTES Chief Complaint Chief Complaint Acute Calculous cholecystitis s/p cholecystectomy Dilated CBD, abnormal IOC - LFTs stable Cerebral palsy Gait instability UTI - proteus, tejada -sensitive. Has been on zosyn, will have had 3 days treatment. History of Present Illness History of Present Illness Ms Milligan is a 29yo F w/ PMHx Anxiety, Depression, cerebral palsy living in a correction who presented from home after she had a diarrhea bowel movement 11/25 and they helped wipe her and saw blood on the toilet paper. Patient complains of right-sided stomach lower abdominal pain. This all started 11/25. Patient has been crawling around her home recently, states her legs have been weaker and has not had a physical therapy referral in 5 years. Admitted for presumptive acute calculous cholecystitis for pain and nausea control. 11/27: She is alert and oriented 3. She only had diarrhea 1. She denies any nausea or vomiting. Rated the pain a 10 out of 10 in ER. She currently has no pain, asking for food. Her pain was always in her rectal area. Positive castellanos's sign. HIDA positive for cystic duct obstruction 11/28: Lap elba 11/29: Still with pain, has a bit of an appetite. No further rectal pain. No SOB or CP. Pt with CP living in a correction. Pt reported she moved into her current Seen by PT, recommending SNF to recover from surgery and reassess her ambulatory status. Still with abdominal pain, appetite coming back slowly. No SOB or CP Plan: Rehab modalities, she wishes to ambulated better, has not had PT for some time. Vitals Vitals Vital Signs Date Time Temp Pulse Resp B/P (MAP) Pulse Ox O2 Delivery O2 Flow Rate FiO2 11/30/19 07:00 98.5 82 16 137/65 (89) 90 Room Air 98.5 11/30/19 00:51 2.0 Physical Exam General: Alert, Cooperative, No acute distress Heart: Regular rate, Normal S1, Normal S2 Abdomen: Soft (OLEKSANDR serosang) Extremities: No clubbing, No cyanosis Skin: No rashes, No breakdown Labs LABS Laboratory Tests Test 11/30/19 04:17 Total Bilirubin 0.5 mg/dL (0.2-1.0) Direct Bilirubin 0.2 mg/dL (0.0-0.2) Aspartate Amino Transf (AST/SGOT) 18 U/L (15-37) Alanine Aminotransferase (ALT/SGPT) 14 U/L (14-59) Alkaline Phosphatase 55 U/L (46-116) Total Protein 6.7 g/dL (6.4-8.2) Albumin 2.8 g/dL (3.4-5.0) Assessment and Plan Assessmemt and Plan Problems Medical Problems: (1) Abdominal pain Status: Acute (2) Cholelithiases Status: Acute Comment Review of Relevant I have reviewed the following items kelly (where applicable) has been applied. Labs Laboratory Tests Test 11/29/19 07:03 11/30/19 04:17 White Blood Count 7.0 x10^3/uL (4.0-11.0) Red Blood Count 4.31 x10^6/uL (3.50-5.40) Hemoglobin 11.5 g/dL (12.0-15.5) Hematocrit 36.0 % (36.0-47.0) Mean Corpuscular Volume 84 fL (79-100) Mean Corpuscular Hemoglobin 27 pg (25-35) Mean Corpuscular Hemoglobin Concent 32 g/dL (31-37) Red Cell Distribution Width 12.6 % (11.5-14.5) Platelet Count 293 x10^3/uL (140-400) Sodium Level 139 mmol/L (136-145) Potassium Level 4.0 mmol/L (3.5-5.1) Chloride Level 104 mmol/L (98-107) Carbon Dioxide Level 21 mmol/L (21-32) Anion Gap 14 (6-14) Blood Urea Nitrogen 10 mg/dL (7-20) Creatinine 0.9 mg/dL (0.6-1.0) Estimated GFR (Cockcroft-Gault) 88.4 BUN/Creatinine Ratio 11 (6-20) Glucose Level 95 mg/dL (70-99) Calcium Level 8.7 mg/dL (8.5-10.1) Total Bilirubin 1.2 mg/dL (0.2-1.0) 0.5 mg/dL (0.2-1.0) Aspartate Amino Transf (AST/SGOT) 22 U/L (15-37) 18 U/L (15-37) Alanine Aminotransferase (ALT/SGPT) 15 U/L (14-59) 14 U/L (14-59) Alkaline Phosphatase 64 U/L (46-116) 55 U/L (46-116) Total Protein 6.7 g/dL (6.4-8.2) 6.7 g/dL (6.4-8.2) Albumin 3.1 g/dL (3.4-5.0) 2.8 g/dL (3.4-5.0) Albumin/Globulin Ratio 0.9 (1.0-1.7) Direct Bilirubin 0.2 mg/dL (0.0-0.2) Laboratory Tests Test 11/30/19 04:17 Total Bilirubin 0.5 mg/dL (0.2-1.0) Direct Bilirubin 0.2 mg/dL (0.0-0.2) Aspartate Amino Transf (AST/SGOT) 18 U/L (15-37) Alanine Aminotransferase (ALT/SGPT) 14 U/L (14-59) Alkaline Phosphatase 55 U/L (46-116) Total Protein 6.7 g/dL (6.4-8.2) Albumin 2.8 g/dL (3.4-5.0) Microbiology 11/25/19 Urine Culture - Final, Complete 11/25/19 Urine Culture Result 1 (SHRAVAN) - Final, Complete 11/25/19 Urine Culture Result 2 (SHRAVAN) - Final, Complete 11/25/19 Antimicrobic Susceptibility - Final, Complete Medications Current Medications Fentanyl Citrate (Fentanyl 2ml Vial) 100 mcg STK-MED ONCE .ROUTE ; Start 11/25/19 at 13:44; Stop 11/25/19 at 13:44; Status DC Fentanyl Citrate (Fentanyl 2ml Vial) 50 mcg 1X ONCE IV Last administered on 11/25/19at 13:47; Start 11/25/19 at 13:45; Stop 11/25/19 at 13:48; Status DC Pantoprazole Sodium (PROTONIX VIAL for IV PUSH) 40 mg 1X ONCE IVP Last administered on 11/25/19at 13:50; Start 11/25/19 at 13:45; Stop 11/25/19 at 13:48; Status DC Pantoprazole Sodium (PROTONIX VIAL for IV PUSH) 40 mg STK-MED ONCE IVP ; Start 11/25/19 at 13:48; Stop 11/25/19 at 13:49; Status DC Iohexol (Omnipaque 300 Mg/ml) 75 ml 1X ONCE IV Last administered on 11/25/19at 14:37; Start 11/25/19 at 14:15; Stop 11/25/19 at 14:16; Status DC Info (CONTRAST GIVEN -- Rx MONITORING) 1 each PRN DAILY PRN MC SEE COMMENTS; Start 11/25/19 at 14:30; Stop 11/27/19 at 14:29; Status DC Fentanyl Citrate (Fentanyl 2ml Vial) 50 mcg 1X ONCE IVP Last administered on 11/25/19at 15:31; Start 11/25/19 at 15:30; Stop 11/25/19 at 15:31; Status DC Ondansetron HCl (Zofran) 4 mg STK-MED ONCE .ROUTE ; Start 11/25/19 at 15:49; Stop 11/25/19 at 15:49; Status DC Fentanyl Citrate (Fentanyl 2ml Vial) 50 mcg 1X ONCE IVP Last administered on 11/25/19at 19:59; Start 11/25/19 at 19:15; Stop 11/25/19 at 19:16; Status DC Ondansetron HCl (Zofran) 4 mg PRN Q8HRS PRN IV NAUSEA/VOMITING; Start 11/25/19 at 19:30; Stop 11/26/19 at 19:29; Status DC Fentanyl Citrate (Fentanyl 2ml Vial) 50 mcg PRN Q1HR PRN IV PAIN Last administered on 11/26/19at 03:37; Start 11/25/19 at 19:30; Stop 11/26/19 at 19:29; Status DC Sodium Chloride 1,000 ml @ 100 mls/hr Q10H IV Last administered on 11/26/19at 10:01; Start 11/25/19 at 19:16; Stop 11/26/19 at 19:15; Status DC Fentanyl Citrate (Fentanyl 2ml Vial) 50 mcg PRN Q1HR PRN IVP PAIN Last administered on 11/30/19at 04:07; Start 11/26/19 at 20:00 Morphine Sulfate (Morphine Sulfate) 4 mg 1X ONCE IV Last administered on 11/27/19at 15:27; Start 11/27/19 at 15:00; Stop 11/27/19 at 15:04; Status DC Morphine Sulfate (Morphine Sulfate) 4 mg STK-MED ONCE .ROUTE ; Start 11/27/19 at 15:16; Stop 11/27/19 at 15:17; Status DC Piperacillin Sod/ Tazobactam Sod 3.375 gm/Sodium Chloride 50 ml @ 100 mls/hr Q6HRS IV Last administered on 11/30/19at 05:09; Start 11/27/19 at 18:00 Iohexol (Omnipaque 300 Mg/ml) 50 ml STK-MED ONCE .ROUTE Last administered on 11/28/19at 08:32; Start 11/28/19 at 07:04; Stop 11/28/19 at 07:04; Status DC Cellulose (Surgicel Hemostat 4x8) 1 each STK-MED ONCE .ROUTE ; Start 11/28/19 at 07:04; Stop 11/28/19 at 07:05; Status DC Bupivacaine HCl (Sensorcaine Mpf 0.5%) 30 ml STK-MED ONCE .ROUTE Last administered on 11/28/19at 08:26; Start 11/28/19 at 07:05; Stop 11/28/19 at 07:05; Status DC Rocuronium [place] (Zemuron) 50 mg STK-MED ONCE .ROUTE ; Start 11/28/19 at 07:27; Stop 11/28/19 at 07:27; Status DC Fentanyl Citrate (Fentanyl 2ml Vial) 100 mcg STK-MED ONCE .ROUTE ; Start 11/28/19 at 07:27; Stop 11/28/19 at 07:27; Status DC Sevoflurane (Ultane) 60 ml STK-MED ONCE IH ; Start 11/28/19 at 07:27; Stop 11/28/19 at 07:28; Status DC Dexamethasone Sodium Phosphate (Decadron) 4 mg STK-MED ONCE .ROUTE ; Start 11/28/19 at 07:27; Stop 11/28/19 at 07:28; Status DC Propofol 20 ml @ As Directed STK-MED ONCE IV ; Start 11/28/19 at 07:27; Stop 11/28/19 at 07:28; Status DC Lidocaine HCl (Lidocaine Pf 2% Vial) 5 ml STK-MED ONCE .ROUTE ; Start 11/28/19 at 07:28; Stop 11/28/19 at 07:28; Status DC Famotidine (Pepcid Vial) 20 mg STK-MED ONCE .ROUTE ; Start 11/28/19 at 07:28; Stop 11/28/19 at 07:28; Status DC Ondansetron HCl (Zofran) 4 mg STK-MED ONCE .ROUTE ; Start 11/28/19 at 07:28; Stop 11/28/19 at 07:28; Status DC Ketorolac Tromethamine (Toradol 30mg Vial) 30 mg STK-MED ONCE .ROUTE ; Start 11/28/19 at 07:28; Stop 11/28/19 at 07:28; Status DC Neostigmine [place] (Neostigmine Methylsulfate) 5 mg STK-MED ONCE .ROUTE ; Star t 11/28/19 at 08:21; Stop 11/28/19 at 08:22; Status DC Glycopyrrolate (Robinul) 1 mg STK-MED ONCE .ROUTE ; Start 11/28/19 at 08:22; Stop 11/28/19 at 08:22; Status DC Lidocaine HCl (Lidocaine Pf 2% Vial) 5 ml STK-MED ONCE .ROUTE ; Start 11/28/19 at 09:18; Stop 11/28/19 at 09:19; Status DC Acetaminophen/ Hydrocodone Bitart (Lortab 5/325) 1 tab PRN Q4HRS PRN PO PAIN Last administered on 11/29/19at 05:51; Start 11/28/19 at 09:30 Acetaminophen/ Hydrocodone Bitart (Lortab 5/325) 2 tab PRN Q4HRS PRN PO PAIN Last administered on 11/29/19at 23:51; Start 11/28/19 at 09:30 Midazolam HCl (Versed) 2 mg PRN 1X PRN IV PRIOR TO PROCEDURE; Start 11/28/19 at 09:45; Stop 11/29/19 at 09:44; Status DC Fentanyl Citrate (Fentanyl 2ml Vial) 25 mcg PRN Q5MIN PRN IV X 2 DOSES FOR PAIN Last administered on 11/28/19at 10:35; Start 11/28/19 at 09:45; Stop 11/29/19 at 09:44; Status DC Fentanyl Citrate (Fentanyl 2ml Vial) 50 mcg PRN Q5MIN PRN IV X 2 DOSES FOR PAIN Last administered on 11/28/19at 10:15; Start 11/28/19 at 09:45; Stop 11/29/19 at 09:44; Status DC Ringer's Solution 1,000 ml @ 125 mls/hr Q8H IV Last administered on 11/28/19at 07:45; Start 11/28/19 at 09:36; Stop 11/28/19 at 21:35; Status DC Fentanyl Citrate (Fentanyl 2ml Vial) 100 mcg STK-MED ONCE .ROUTE ; Start 11/28/19 at 10:03; Stop 11/28/19 at 10:03; Status DC Active Scripts Active Ibuprofen 600 Mg Tablet 600 Mg PO Q6-8HRS PRN Reported Refresh Optive Eye Drops (Carboxymethylcellulos/Glycerin) 15 Ml Drops 1 Drop EACHEYE TID Paroxetine Cr (Paroxetine HCl) 12.5 Mg Tab.er.24h 5 Mg PO DAILY Vitals/I & O Vital Sign - Last 24 Hours 11/29/19 11/29/19 11/29/19 11/29/19 09:38 10:38 11:00 15:00 Temp 98.3 98.3 98.3 98.3 Pulse 89 80 Resp 20 18 18 B/P (MAP) 113/64 (80) 99/62 (74) Pulse Ox 94 92 92 95 O2 Delivery Room Air Room Air Room Air Room Air O2 Flow Rate 2.0 11/29/19 11/29/19 11/29/19 11/29/19 18:46 19:00 19:46 20:05 Temp 98.0 98.0 Pulse 90 Resp 20 16 20 B/P (MAP) 126/76 (93) Pulse Ox 95 95 O2 Delivery Room Air Room Air Room Air Room Air 11/29/19 11/29/19 11/29/19 11/29/19 21:33 22:03 23:00 23:51 Temp 97.8 97.8 Pulse 84 Resp 16 B/P (MAP) 116/70 (85) Pulse Ox 95 O2 Delivery Room Air Room Air Room Air Room Air 11/30/19 11/30/19 11/30/19 11/30/19 00:51 03:00 03:32 04:07 Temp 98.5 98.5 Pulse 80 Resp 18 B/P (MAP) 99/59 (72) Pulse Ox 95 90 90 O2 Delivery Room Air Room Air Room Air Room Air O2 Flow Rate 2.0 11/30/19 11/30/19 04:37 07:00 Temp 98.5 98.5 Pulse 82 Resp 16 B/P (MAP) 137/65 (89) Pulse Ox 90 O2 Delivery Room Air Room Air Intake and Output 11/29/19 11/29/19 11/30/19 15:00 23:00 07:00 Intake Total 1020 ml 700 ml Output Total 1245 ml Balance 1020 ml -1245 ml 700 ml Hemodynamically unstable?: No Is patient in severe pain?: No Is NPO status required?: No REJI COLEY MD Nov 30, 2019 08:52
[2019-11-30] MEDS: HYDROcodone/APAP 5/325MG 1 TAB TABLET PO PRN ×3 (09:02→20:54)
[2019-11-30] MEDS ORDERED: BISACODYL 5 MG TABLET.DR. PO PRN (10:00)
[2019-11-30] MEDS ORDERED: POLYETHYLENE GLYCOL 3350 17 GM PACKET. PO PRN (10:00)
--- NOTE | 2019-11-30 10:02 | PDOC ---
Subjective: Subjective: Says abdominal pain is better and she's eating okay. Hasn't stooled. Objective: Objective: D/w nurse - c/o pain. Vital Signs: Vital Signs Date Time Temp Pulse Resp B/P (MAP) Pulse Ox O2 Delivery O2 Flow Rate FiO2 11/30/19 09:02 Room Air 11/30/19 07:00 98.5 82 16 137/65 (89) 90 98.5 11/30/19 00:51 2.0 Labs: Laboratory Tests Test 11/30/19 04:17 Total Bilirubin 0.5 mg/dL Direct Bilirubin 0.2 mg/dL Aspartate Amino Transf (AST/SGOT) 18 U/L Alanine Aminotransferase (ALT/SGPT) 14 U/L Alkaline Phosphatase 55 U/L Total Protein 6.7 g/dL Albumin 2.8 g/dL PE: GEN: NAD LUNGS: CTAB HEART: RRR ABD: quiet, soft, epigastric discomfort NEURO/PSYCH: A & O 3 A/P: Calculous cholecystitis s/p cholecystectomy Dilated CBD, abnormal IOC - LFTs normal, no plans for ERCP at this time -- Tolerating diet, hasn't stooled - will add Miralax. More pain on exam today but she reports less pain overall. Hemodynamically unstable?: No Is patient in severe pain?: No Is NPO status required?: No ALY COUCH Nov 30, 2019 10:01
[2019-11-30 11:00] VITALS: BP 132/63
--- NOTE | 2019-11-30 12:40 | PDOC ---
JIM GARCIA ASSOCIATE OF SCIENCE IN NURSING 11/30/19 1240: SURGICAL PROGRESS NOTE Subjective incisional pain tolerating diet Vital Signs Vital Signs Date Time Temp Pulse Resp B/P (MAP) Pulse Ox O2 Delivery O2 Flow Rate FiO2 11/30/19 11:18 Room Air 11/30/19 07:00 98.5 82 16 137/65 (89) 90 98.5 11/30/19 00:51 2.0 I&O Intake and Output 11/30/19 07:00 Intake Total 1720 ml Output Total 1245 ml Balance 475 ml Intake Oral 1720 ml Output Urine Total 1200 ml Drainage Total 45 ml # Voids 5 General: Alert, Oriented X3, Cooperative, No acute distress Abdomen: Soft, Other (drain serous ) Labs Laboratory Tests Test 11/29/19 07:03 11/30/19 04:17 White Blood Count 7.0 x10^3/uL (4.0-11.0) Red Blood Count 4.31 x10^6/uL (3.50-5.40) Hemoglobin 11.5 g/dL (12.0-15.5) Hematocrit 36.0 % (36.0-47.0) Mean Corpuscular Volume 84 fL (79-100) Mean Corpuscular Hemoglobin 27 pg (25-35) Mean Corpuscular Hemoglobin Concent 32 g/dL (31-37) Red Cell Distribution Width 12.6 % (11.5-14.5) Platelet Count 293 x10^3/uL (140-400) Sodium Level 139 mmol/L (136-145) Potassium Level 4.0 mmol/L (3.5-5.1) Chloride Level 104 mmol/L (98-107) Carbon Dioxide Level 21 mmol/L (21-32) Anion Gap 14 (6-14) Blood Urea Nitrogen 10 mg/dL (7-20) Creatinine 0.9 mg/dL (0.6-1.0) Estimated GFR (Cockcroft-Gault) 88.4 BUN/Creatinine Ratio 11 (6-20) Glucose Level 95 mg/dL (70-99) Calcium Level 8.7 mg/dL (8.5-10.1) Total Bilirubin 1.2 mg/dL (0.2-1.0) 0.5 mg/dL (0.2-1.0) Aspartate Amino Transf (AST/SGOT) 22 U/L (15-37) 18 U/L (15-37) Alanine Aminotransferase (ALT/SGPT) 15 U/L (14-59) 14 U/L (14-59) Alkaline Phosphatase 64 U/L (46-116) 55 U/L (46-116) Total Protein 6.7 g/dL (6.4-8.2) 6.7 g/dL (6.4-8.2) Albumin 3.1 g/dL (3.4-5.0) 2.8 g/dL (3.4-5.0) Albumin/Globulin Ratio 0.9 (1.0-1.7) Direct Bilirubin 0.2 mg/dL (0.0-0.2) Laboratory Tests Test 11/30/19 04:17 Total Bilirubin 0.5 mg/dL (0.2-1.0) Direct Bilirubin 0.2 mg/dL (0.0-0.2) Aspartate Amino Transf (AST/SGOT) 18 U/L (15-37) Alanine Aminotransferase (ALT/SGPT) 14 U/L (14-59) Alkaline Phosphatase 55 U/L (46-116) Total Protein 6.7 g/dL (6.4-8.2) Albumin 2.8 g/dL (3.4-5.0) Problem List Problems Medical Problems: (1) Abdominal pain Status: Acute (2) Cholelithiases Status: Acute Assessment/Plan s/p elba ok to remove drain prior to dc GI noted reviewed SAMARA BAEZA MD 12/01/19 1250: SURGICAL PROGRESS NOTE Assessment/Plan Agree with above JIM GARCIA ASSOCIATE OF SCIENCE IN NURSING Nov 30, 2019 12:40 SAMARA BAEZA MD Dec 01, 2019 12:50
--- NOTE | 2019-11-30 13:15 | NUR ---
SW following. Discussed with RN. PT/OT recommending home health. Denisse Patel RN will meet with pt. SW contacted [facility] director, Jayde Snell (ph: [phone], fax: [phone]). SW will continue to follow. RN notified.
[2019-11-30] MEDS ORDERED: MAGNESIUM CITRATE 296 ML SOLUTION. PO ONE (14:00)
[2019-11-30 15:00] VITALS: BP 125/65
[2019-11-30] MEDS: PSYLLIUM HUSK (SUGAR FREE) 1 PKT PACKET PO SCH (15:05)
[2019-11-30] MEDS: POLYETHYLENE GLYCOL 3350 17 GM PACKET. PO SCH (15:06)
[2019-11-30 19:00] VITALS: BP 126/81
[2019-11-30 23:00] VITALS: BP 141/74
[2019-12-01 03:00] VITALS: BP 131/77
[2019-12-01] MEDS: HYDROcodone/APAP 5/325MG 1 TAB TABLET PO PRN (05:27)
[2019-12-01] MEDS: PIPERACILLIN/TAZOBACTAM 3.375 GM in IV NORMAL SALINE 50ML 50 ML IV SCH ×2 (05:27→12:00)
[2019-12-01 07:00] VITALS: BP 117/72
[2019-12-01] MEDS ORDERED: POLYETHYLENE GLYCOL 3350 17 GM PACKET. PO SCH (09:00)
[2019-12-01] MEDS: PSYLLIUM HUSK (SUGAR FREE) 1 PKT PACKET PO SCH (09:00)
[2019-12-01] MEDS: POLYETHYLENE GLYCOL 3350 17 GM PACKET. PO SCH (09:00)
--- NOTE | 2019-12-01 10:25 | PDOC ---
Subjective: Subjective: Just had a bowel movement, doing better. Objective: Objective: D/w nurse - stooled this morning, plans to discharge today. Vital Signs: Vital Signs Date Time Temp Pulse Resp B/P (MAP) Pulse Ox O2 Delivery O2 Flow Rate FiO2 12/01/19 07:00 97.8 72 16 117/72 (87) 94 Room Air 97.8 11/30/19 15:04 2.0 PE: GEN: NAD LUNGS: CTAB HEART: RRR ABD: soft, less tender today NEURO/PSYCH: A & O 3 A/P: Calculous cholecystitis s/p cholecystectomy Dilated CBD, abnormal IOC - LFTs normal -- Dc per primary. Hemodynamically unstable?: No Is patient in severe pain?: No Is NPO status required?: No ALY COUCH Dec 01, 2019 10:25
[2019-12-01] MEDS ORDERED: BISA5TAB4 PO (10:48)
[2019-12-01] MEDS ORDERED: HYDR-2761 PO (10:48)
[2019-12-01 11:00] VITALS: BP 137/80
--- NOTE | 2019-12-01 11:18 | PDOC ---
JIM GARCIA REGIONAL CONTROLLER 12/01/19 1118: SURGICAL PROGRESS NOTE Subjective feels better tolerating diet had a stool Vital Signs Vital Signs Date Time Temp Pulse Resp B/P (MAP) Pulse Ox O2 Delivery O2 Flow Rate FiO2 12/01/19 07:00 97.8 72 16 117/72 (87) 94 Room Air 97.8 11/30/19 15:04 2.0 I&O Intake and Output 12/01/19 07:00 Output Total 125 ml Balance -125 ml Output Urine Total 0 ml Drainage Total 125 ml # Voids 1 General: Alert, Oriented X3, Cooperative Abdomen: Soft, Other (drain serous ) Labs Laboratory Tests Test 11/30/19 04:17 Total Bilirubin 0.5 mg/dL (0.2-1.0) Direct Bilirubin 0.2 mg/dL (0.0-0.2) Aspartate Amino Transf (AST/SGOT) 18 U/L (15-37) Alanine Aminotransferase (ALT/SGPT) 14 U/L (14-59) Alkaline Phosphatase 55 U/L (46-116) Total Protein 6.7 g/dL (6.4-8.2) Albumin 2.8 g/dL (3.4-5.0) Problem List Problems Medical Problems: (1) Abdominal pain Status: Acute (2) Cholelithiases Status: Acute Assessment/Plan s/p elba ok to dc remove drain FU 2 weeks SAMARA BAEZA MD 12/01/19 1251: SURGICAL PROGRESS NOTE Assessment/Plan agree with above JIM GARCIA APRN Dec 01, 2019 11:18 SAMARA BAEZA MD Dec 01, 2019 12:51
--- NOTE | 2019-12-01 11:44 | SNU/HH DC ---
DISCHARGE WITH HOME HEALTH DISCHARGE INFORMATION: Discharge Date: Dec 01, 2019 Final Diagnosis: Problems Medical Problems: (1) Abdominal pain Status: Acute (2) Cholelithiases Status: Acute Condition on Discharge: Stable CODE STATUS: Code Status: Full HOME HEALTH: Face to Face: I certify this patient is under my care and that I, or a nurse practitioner or physician's bar assistant working with me, had a face to face encounter that meets the physician face to face encounter requirements with this patient on []. RN For Eval/Treatment: Yes Physical Therapy For: Evalulation/Treatment Occupational Therapy For: Evaluation/Treatment Home Health Aide For: Self-care DOUBLE END PRODUCTION GRINDER For: Community Resources Pt Meets Homebound Status: Poor cognition POST DISCHARGE ORDERS: Activity Instructions for Disc: No restrictions Weight Bearing Status after Di: No restrictions DIET AFTER DISCHARGE: Cardiac CERTIFICATION STATEMENT: Certification Statement: Certification Statement: Based on the above finding, I certify that this patient is confined to the home and needs intermittent senior care care, physical therapy and/or speech therapy, or continues to need occupational therapy.~ This patient is under my care, and I have initiated the establishment of the plan of care.~ This patient will be followed by myself or a community physician who will periodically review the plan of care. Home Meds Active Scripts Hydrocodone Bit/Acetaminophen (HYDROCODONE-APAP 5-325 ) 1 Tab Tablet, 1 TAB PO PRN Q4HRS PRN for PAIN for 5 Days, #30 TAB Prov:GARFIELD MOSER MD 12/01/19 Bisacodyl (BISACODYL) 5 Mg Tablet.dr, 5 MG PO PRN DAILY PRN for CONSTIPATION for 7 Days, TAB.SR Prov:GARFIELD MOSER MD 12/01/19 Ibuprofen (IBUPROFEN) 600 Mg Tablet, 600 MG PO Q6-8HRS PRN for INFLAMMATION, #30 TAB Prov:ELIEZER ROLON MD 09/07/16 Reported Medications Carboxymethylcellulos/Glycerin (REFRESH OPTIVE EYE DROPS) 15 Ml Drops, 1 DROP EACHEYE TID for Dry Eyes, #30 ML 6 Refills 11/26/19 Paroxetine HCl (Paroxetine Cr) 12.5 Mg Tab.er.24h, 5 MG PO DAILY for Anxiety, TAB.SR 11/26/19 GARFIELD MOSER MD Dec 01, 2019 11:44
--- NOTE | 2019-12-01 13:40 | NUR ---
SW following. Discussed with RN, pt [facility] back to prison today at 1400 with [facility]. Her prison will collect her. RN notified.
--- NOTE | 2019-12-01 15:06 | NUR ---
pt discharged back to detention w/ HH services. meds and follow up information sent w/ detention rep. scripts for hydrocodone and stool softener given. IV removed, cath intact. OLEKSANDR drain removed w/out difficulty. island dressing placed. pt stable upon dc.
--- NOTE | 2019-12-01 15:50 | PDOC3 ---
Discharge Summary Visit Information Date of Admission: Nov 25, 2019 Date of Discharge: Dec 01, 2019 Final Diagnosis Problems Medical Problems: (1) Abdominal pain Status: Acute (2) Cholelithiases Status: Acute Brief Hospital Course Allergies Allergies Coded Allergies Type Severity Reaction Last Updated Verified No Known Drug Allergies 11/25/19 No Vital Signs GENERAL: No apparent distress. Alert and oriented. HEENT: Head normocephalic, atraumatic. NECK: Supple LUNGS: Clear to auscultation. HEART: RRR, S1, S2 present, pulses intact ABDOMEN: Soft, positive bowel sounds. EXTREMITIES: No cyanosis or edema. NEUROLOGIC: Normal speech, normal tone PSYCHIATRIC: Normal affect, normal mood. SKIN: No ulceration. Vital Signs Date Time Temp Pulse Resp B/P (MAP) Pulse Ox O2 Delivery O2 Flow Rate FiO2 12/01/19 11:00 98.6 90 18 137/80 (99) 97 Room Air 98.6 11/30/19 15:04 2.0 Lab Results Laboratory Tests Test 11/30/19 04:17 Total Bilirubin 0.5 mg/dL (0.2-1.0) Direct Bilirubin 0.2 mg/dL (0.0-0.2) Aspartate Amino Transf (AST/SGOT) 18 U/L (15-37) Alanine Aminotransferase (ALT/SGPT) 14 U/L (14-59) Alkaline Phosphatase 55 U/L (46-116) Total Protein 6.7 g/dL (6.4-8.2) Albumin 2.8 g/dL (3.4-5.0) Brief Hospital Course Ms Milligan is a 29yo F w/ PMHx Anxiety, Depression, cerebral palsy living in a care home who presented from home after she had a diarrhea bowel movement 11/25 and they helped wipe her and saw blood on the toilet paper. Patient complains of right-sided stomach lower abdominal pain. This all started 11/25. Patient has been crawling around her home recently, states her legs have been weaker and has not had a physical therapy referral in 5 years. Admitted for presumptive acute calculous cholecystitis for pain and nausea control. Acute Calculous cholecystitis s/p cholecystectomy. GI also consulted Dilated CBD, abnormal IOC - LFTs stable Cerebral palsy Gait instability UTI - proteus, tejada -sensitive. Has been on zosyn, will have had 3 days treatment. patient tolerating PO diet and pain improved. given scripts for pain meds. no abx at discharge. will go to care home in stable condition. Discharge Information Condition at Discharge: Stable Disposition/Orders: Other (dc to care home) Scheduled Carboxymethylcellulos/Glycerin (Refresh Optive Eye Drops) 15 Ml Drops, 1 DROP EACHEYE TID for Dry Eyes, #30 Ref 6 (Reported) Entered as Reported by: PAUL THOMPSON RN on 11/26/19143 Last Action: New Order on 11/26/19143 by PAUL THOMPSON RN Paroxetine HCl (Paroxetine Cr) 12.5 Mg Tab.er.24h, 5 MG PO DAILY for Anxiety, (Reported) Entered as Reported by: PAUL THOMPSON RN on 11/26/19143 Last Action: New Order on 11/26/19143 by PAUL THOMPSON RN Scheduled PRN Bisacodyl (Bisacodyl) 5 Mg Tablet.dr, 5 MG PO PRN DAILY PRN for CONSTIPATION for 7 Days Prescribed by: GARFIELD MOSER MD on 12/01/19 1048 Hydrocodone Bit/Acetaminophen (Hydrocodone-Apap 5-325 ) 1 Tab Tablet, 1 TAB PO PRN Q4HRS PRN for PAIN for 5 Days, #30 Prescribed by: GARFIELD MOSER MD on 12/01/19 1048 Ibuprofen (Ibuprofen) 600 Mg Tablet, 600 MG PO Q6-8HRS PRN for INFLAMMATION, #30 Prescribed by: ELIEZER ROLON on 09/07/16 1436 Last Action: Reviewed on 11/26/19143 by PAUL THOMPSON RN Hemodynamically unstable?: No Is patient in severe pain?: No Is NPO status required?: No GARFIELD MOSER MD Dec 01, 2019 15:50
== END 2019-12-01 15:10 | disposition home health service (06) | DRG 418 ==
LOC: ER 13:07 → 5 SOUTH 19:10
PROVIDERS: ADMIT Family Medicine; ATTEND Family Medicine
PROC: BF121ZZ Fluoroscopy of Gallbladder using Low Osmolar Contrast (ICD-10-PCS; 2019-11-28)
PROC: 0FT44ZZ Resection of Gallbladder, Percutaneous Endoscopic Approach (ICD-10-PCS; principal; 2019-11-28 08:00)
DX: K80.01 Calculus of gallbladder with acute cholecystitis with obstruction (principal); N39.0 Urinary tract infection, site not specified; F41.9 Anxiety disorder, unspecified; F32.9 Major depressive disorder, single episode, unspecified; B96.4 Proteus (mirabilis) (morganii) as the cause of diseases classified elsewhere; K83.8 Other specified diseases of biliary tract; G80.9 Cerebral palsy, unspecified
CPT/HCPCS: 36415; 74177; 74300; 76705; 78226; 80053; 80076; 80307; 81001; 81025; 82274; 83690; 85025; 85027; 87086; 87186; 88304; 96374; 96375; 96376; A7015; A9537; C9113; J1100; J1885; J2001; J2270; J2405; J2543; J2704; J2710; J3010; J3490; J7030; J7120; Q9967; 97110; 97530; 97535; 99285-25; G0378

== ENCOUNTER 2021-10-31 10:09 | Emergency (ER) | payer MEDICAID ==
[~2021-10-31] VITALS: Ht 149.9 cm; Wt 97.7 kg
[~2021-10-31 10:09] MED LIST changes: +BISA5TAB4 PO; +CARB15DR3 EACHEYE; +CYCL10TA19 PO; -CYCL10TA2 PO; +HYDR-2761 PO; +PARO12.523 PO
[2021-10-31] MEDS ORDERED: IBUPROFEN 100 MG/5 ML ORAL.SUSP. PO ONE (12:00)
--- NOTE | 2021-10-31 12:35 | PHYS DOC ---
Past Medical History Past Medical History: Anxiety, Depression, Other Additional Past Medical Histor: CEREBRAL PALSY, PTSD Past Surgical History: Cholecystectomy, Other Additional Past Surgical Histo: GROIN, ANKLES, LIMB STRAIGHTENING Smoking Status: Never Smoker Alcohol Use: None Drug Use: None General Adult EDM: Chief Complaint: COUGH HPI: HPI: Patient is a 31-year-old female who presents to the emergency department with a chief complaint of sore throat and cough for the past 3 days, patient reports she started feeling sick this past Wednesday, has not taken any medications for her cough or illness, noticed that her chest hurts when she coughs otherwise has no aches or pains. Patient denies fever or chills, denies chest congestion, does report a sore throat, feels her ears are popping, has stuffy nose, reports symptoms are worse at night when trying to sleep. Patient denies other physical complaints or physical concerns. HPI limited due to patient lives in nursing home related to cerebral palsy has healthcare provider at bedside with medical information. Review of Systems: Review of Systems: 14 body systems of review of systems have been reviewed. See HPI for pertinent positives and negative responses, otherwise all other systems are negative, nonpertinent or noncontributory. Constitutional: Negative except as outlined in HPI above. Skin: Negative except as outlined in HPI above. Eyes: Negative except as outlined in HPI above. HENT: Negative except as outlined in HPI above. Respiratory: Negative except as outlined in HPI above. Cardiovascular: Negative except as outlined in HPI above. GI: Negative except as outlined in HPI above. : Negative except as outlined in HPI above. Musculoskeletal: Negative except as outlined in HPI above. Integument: Negative except as outlined in HPI above. Neurologic: Negative except as outlined in HPI above. Endocrine: Negative except as outlined in HPI above. Lymphatic: Negative except as outlined in HPI above. Psychiatric: Negative except as outlined in HPI above. Heart Score: C/O Chest Pain: No Risk Factors: Risk Factors: DM, Current or recent (<one month) smoker, HTN, HLP, family history of CAD, obesity. Risk Scores: Score 0 - 3: 2.5% MACE over next 6 weeks - Discharge Home Score 4 - 6: 20.3% MACE over next 6 weeks - Admit for Clinical Observation Score 7 - 10: 72.7% MACE over next 6 weeks - Early Invasive Strategies Current Medications: Current Medications Medications (Trade) Dose Ordered Sig/Clive Start Time Stop Time Status Last Admin Dose Admin Ibuprofen (Children'S Motrin) 600 mg 1X ONCE 10/31/21 12:00 10/31/21 12:06 DC 10/31/21 12:17 600 MG Allergies: Allergies: Allergies Coded Allergies Type Severity Reaction Last Updated Verified No Known Drug Allergies 11/25/19 No Physical Exam: PE: Constitutional: Well developed, well nourished, no acute distress, non-toxic appearance. 31-year-old female in no apparent distress. HENT: Normocephalic, atraumatic. Oropharynx moist, erythematous bilateral tonsils with cobblestoning without exudative drainage, scant clear postnasal drip, no uvular edema or deviation, no laryngeal edema, no drooling, no trismus, patient speaking in normal voice tones, right-sided submental lymphadenopathy, no other lymphadenopathy of the head or neck appreciated, bilateral TMs intact with fluid air bubbles, bilateral nasal turbinates boggy with small amount of drainage from bilateral naris. Eyes: Conjunctiva normal, no discharge. Neck: Normal range of motion, no stridor. Cardiovascular: No cyanosis appreciated, distal cap refill less than 2 seconds. Lungs & Thorax: Patient is in no respiratory distress, no audible adventitious lung sounds appreciated. Lung sounds clear to auscultate all lung key, no pain to palpation of the anterior thorax. Abdomen: Nontender, no abnormalities noted. Skin: Warm, dry, no erythema, no rash. Back: No tenderness, no deformities. Extremities: No tenderness, no cyanosis, no clubbing, ROM intact, no edema. Neurologic: Alert and oriented X 3, normal motor function, normal sensory function, no focal deficits noted. Psychologic: Affect normal, judgement normal, mood normal. Current Patient Data: Vital Signs: Vital Signs Date Time Temp Pulse Resp B/P (MAP) Pulse Ox O2 Delivery O2 Flow Rate FiO2 10/31/21 11:51 98.4 85 17 124/74 (91) 98 Room Air 98.4 EKG: EKG: EKG performed at 1202 by ED nursing staff shows a normal sinus rhythm without other ectopy heart rate 82 bpm, parable 0.100, QTc interval 0.400, no acute S CHERYL, no ACS, no acute ischemia appreciated, EKG interpreted by ED attending physician Dr. Garcia. Radiology/Procedures: Radiology/Procedures: STATUS: REG ER ORD. PHYSICIAN: SLOAN LEUNG APRN REASON: Cough, chest discomfort PROCEDURE: CHEST AP ONLY EXAMINATION: Chest radiograph. VIEWS: Single AP view of the chest COMPARISON: None INDICATION:31 years, Female, cough, chest discomfort. FINDINGS: Lungs are mildly hyperinflated. Normal cardiomediastinal silhouette. No focal consolidation. No pleural effusion or pneumothorax. No acute osseous process. IMPRESSION: No acute cardiopulmonary process. Electronically signed by: Armand Lobato DO (10/31/2021 12:49 PM) [id number] Course & Med Decision Making: Course & Med Decision Making Pertinent Labs and Imaging studies reviewed. (See chart for details) 31-year-old female, mark review, presents for referral concerning sore throat with cough for the past few days. Physical examination consistent with viral URI, will order EKG as patient told triage nurse she had chest pain with cough, will order chest x-ray, rapid strep, will give ibuprofen for discomfort. Chest x-ray unremarkable, EKG unremarkable, rapid strep negative, upon reevaluation of the patient, the patient reports her throat pain has been relieved with the pain medication given in the ED today, patient reports she has not coughed during her time in the emergency department. Patient states she does not have any chest pain or discomfort at this time. Discussed with patient and patient's caregiver at bedside diagnosis of viral URI, recommended ibuprofen for returning discomfort, Zyrtec at night for evening symptoms, staying well- hydrated, will prescribe Tessalon Perle for returning cough, strict follow-up with primary care this week for ongoing symptoms, reviewed return to ER precautions and concerns, patient patient's caregiver gave verbal understanding of and are amenable to ED discharge planning. Discussed with the patient all findings and diagnostic testing as well as the need to follow-up with their primary care provider for further evaluation and treatment or return to the ED if any new or worsening symptoms. Strict return precautions were also discussed at length, the patient voiced understanding and agreement with the discharge planning. The patient was nontoxic in appearance, in no apparent distress, and hemodynamically stable at the time of disposition. Dragon Disclaimer: Dragon Disclaimer: This electronic medical record was generated, in whole or in part, using a voice recognition dictation system. Departure Departure Impression: Primary Impression: URI, acute Additional Impression: Cough Disposition: HOME / SELF CARE / HOMELESS Condition: GOOD Referrals: SAIRA REY MD (PCP) Patient Instructions: Upper Respiratory Infection, Adult Additional Instructions: You were seen today in the emergency department for a cough, a chest x-ray performed today did not show any signs of pneumonia or other infectious process. Your physical examination reveals signs and symptoms that are most likely related to a upper respiratory infection, this is most likely a viral infection. This does not require antibiotics, as we discussed I am prescribing you ibuprofen for pain and discomfort, Tessalon Perle for cough, and Zyrtec to take at night for your evening symptoms. Please take these medications as directed and continue all your home medications as directed by your primary care providers. Return to the emergency department for worsening symptoms or other concerns. Thank you for visiting our Emergency Department. It was a pleasure taking care of you today in the emergency department and we appreciate you trusting us with your care. If any additional problems come up don't hesitate to return to visit us. Please follow up with your primary care provider so they can plan additional care if needed and know about the problem that you had. If symptoms worsen come back to the Emergency Department. Any concerning symptoms that start such as chest pain, shortness of air, weakness or numbness on one side of the body, running high fevers or any other concerning symptoms return to the ER. EMERGENCY DEPARTMENT GENERAL DISCHARGE INSTRUCTIONS Thank you for coming to [facility] Emergency Department (ED) today and trusting us with you care. We trust that you had a positive experience in our Emergency Department. If you wish to speak to the department management, you may call the Director at [phone]. YOUR FOLLOW UP INSTRUCTIONS ARE FOLLOWS: 1. Do you have a private Doctor? If you do not have a private doctor, please ask for a resource list of physicians or clinics that may be able to assist you with follow up care. 2. The Emergency Physicain has interpreted your x-rays. The X-Ray specialist will also review them. If there is a change in the findings, you will be notified in 48 hours when at all possible. 3. A lab test or culture has been done, your results will be reviewed and you will be notified if you need a change in treatment. ADDITIONAL INSTRUCTIONS AND INFORMATION: 1. Your care today has been supervised by a physician who is specially trained in emergency care. Many problems require more than one evaluation for a complete diagnosis and treatment. We recommend that you schedule your follow up appointment as recommended to ensure complete treatment of you illness or injury. If you are unable to obtain follow up care and continue to have a problem, or if your condition worsens, we recommend that you return to the ED. 2. We are not able to safely determine your condition over the phone nor are we able to give sound medical advice over the phone. For these safety reasons, if you call for medical advice we will ask you to come to the ED for further evaluation. 3. If you have any questions regarding these discharge instructions please call the ED at [phone]. SAFETY INFORMATION: In the interest of safety, wellness, and injury prevention; we encourage you to wear your sealbelt, if you smoke; quite smoking, and we encourage family to use a protective helmet for bicycling and other sporting events that present an increased risk for head injury. IF YOUR SYMPTOMS WORSEN OR NEW SYMPTOMS DEVELOP, OR YOU HAVE CONCERNS ABOUT YOUR CONDITION; OR IF YOUR CONDITION WORSENS WHILE YOU ARE WAITING FOR YOUR FOLLOW UP APPOINTMENT; EITHER CONTACT YOUR PRIMARY CARE DOCTOR, THE PHYSICIAN WHOSE NAME AND NUMBER YOU WERE GIVEN, OR RETURN TO THE ED IMMEDIATELY. Scripts Cetirizine Hcl (ZYRTEC) 10 Mg Tablet 1 TAB PO HS for allergies, #30 TAB 2 Refills Prov: SLOAN LEUNG APRN 10/31/21 Ibuprofen (IBUPROFEN) 100 Mg/5 Ml Oral.susp 30 ML PO PRN Q8HRS PRN for throat pain, #120 ML 2 Refills Prov: SLOAN LEUNG APRN 10/31/21 Benzonatate (BENZONATATE) 100 Mg Capsule 1 CAP PO PRN TID PRN for COUGH, #30 CAP 0 Refills Prov: SLOAN LEUNG APRN 10/31/21 SLOAN LEUNG APRN Oct 31, 2021 12:35
--- NOTE | 2021-10-31 12:51 | RAD ---
EXAMINATION: Chest radiograph. VIEWS: Single AP view of the chest COMPARISON: None INDICATION:31 years, Female, cough, chest discomfort. FINDINGS: Lungs are mildly hyperinflated. Normal cardiomediastinal silhouette. No focal consolidation. No pleur al effusion or pneumothorax. No acute osseous process. IMPRESSION: No acute cardiopulmonary process. Electronically signed by: Armand Lobato DO (10/31/2021 12:49 PM) [id number]
[2021-10-31] MEDS ORDERED: BENZ-8 PO (14:12)
[2021-10-31] MEDS ORDERED: CETI10TA74 PO (14:12)
[2021-10-31] MEDS ORDERED: IBUP-1739 PO (14:12)
[2021-10-31 14:16] VITALS: BP 114/63
--- NOTE | 2021-10-31 15:32 | EKG ---
[facility] [address] [place] [address] Test Date: 2021-10-31 Test Time: 12:02:33 Pat Name: SOULEYMANE LINK Department: Room: Gender: F [employer]: : [id number] Requested By: SLOAN LEUNG Order Number: [id number] Reading MD: Measurements Intervals [place] Rate: 82 P: TN: QRS: 42 QRSD: 76 T: 27 QT: 340 QTc: 400 Interpretive Statements ATRIAL FLUTTER ABNORMAL ECG RI6.02 No previous ECG available for comparison
== END 2021-10-31 14:47 | disposition home or self-care (01) ==
LOC: ER 10:09
DX: J06.9 Acute upper respiratory infection, unspecified (principal); Z20.822 Contact with and (suspected) exposure to COVID-19; R05.9 Cough, unspecified
CPT/HCPCS: 71045; 87070; 87147; 87880; 93005; 99285-25